=== PATIENT | male | born 1970 | race Caucasian/White ===

== ENCOUNTER 2016-05-13 20:14 | Inpatient (IN) | payer MEDICARE, OTHER ==
[2016-05-13] VITALS (13 sets, daily range): BP systolic 110–209; BP diastolic 69–114; PULSE 57–86; RESP 16–20; O2SAT 98–100
[~2016-05-13 20:14] MED LIST: ALPR2TAB3 PO; BACL20TA PO; CIPR500T4 PO; GABA800T PO; IBUP800T23 PO; MELA5TAB13 PO; METH1TAB2 PO; MORP100T40 PO; MORP60TA20; PERC10TA27 PO; POTA1TAB4; [UNRECOGNIZED DRUG - CODE] IR
[2016-05-13] MEDS ORDERED: ETOMIDATE 40 MG/20 ML VIAL ONE (20:20)
[2016-05-13] MEDS ORDERED: PROPOFOL 1000 MG/100 ML INJ 100 ML ONE (20:20)
[2016-05-13] MEDS ORDERED: SUCCINYLCHOLINE CHLORIDE 200 MG/10 ML VIAL ONE (20:21)
[2016-05-13] MEDS ORDERED: SODIUM CHLOR 0.9% 1000 ML INJ 1,000 ML IV ONE ×4 (20:38→23:30)
[2016-05-13 21:00] LABS: AUTOMATED NEUTROPHIL # 6.9 TH/MM3 (1.8-7.7); BASOPHIL # 0.1 TH/MM3 (0-0.2); EOSINOPHIL # 0.6 TH/MM3 (0-0.4); EOSINOPHIL % 4.5 % (0.0-4.0); HEMATOCRIT 50.8 % (39.0-51.0); HEMO FLAGS DIFF FINAL; LYMPH % 37.3 % (9.0-44.0); LYMPHOCYTE # 5.1 TH/MM3 (1.0-4.8); MEAN CELL VOLUME 84.7 FL (80.0-100.0); MEAN CORPUSCULAR HEMOGLOBIN 28.4 PG (27.0-34.0); MEAN CORPUSCULAR HGB CONC 33.6 % (32.0-36.0); MONO % 7.2 % (0.0-8.0); PLATELET COUNT 294 TH/MM3 (150-450); RED CELL DISTRIBUTION WIDTH 14.5 % (11.6-17.2); WHITE BLOOD COUNT 13.7 TH/MM3 (4.0-11.0)
[2016-05-13] MEDS ORDERED: ETOMIDATE 20 MG/10 ML VIAL IVP ONE (21:00)
[2016-05-13] MEDS ORDERED: PROPOFOL 1000 MG/100 ML INJ 100 ML IV SCH (21:00)
[2016-05-13] MEDS ORDERED: SUCCINYLCHOLINE CHLORIDE 200 MG/10 ML VIAL IVP ONE (21:00)
--- NOTE | 2016-05-13 21:01 | PD ---
Data Data Last Documented VS Vital Signs Date Time Temp Pulse Resp B/P Pulse Ox O2 Delivery O2 Flow Rate FiO2 05/13/16 20:35 86 16 209/114 98 Orders Propofol 1000 Mg/100 Ml Inj (Diprivan 10 (05/13/16 20:20) Etomidate Inj (Amidate Inj) (05/13/16 20:20) Succinylcholine Inj (Quelicin Inj) (05/13/16 20:21) Electrocardiogram (05/13/16 20:38) Complete Blood Count With Diff (05/13/16 20:38) Comprehensive Metabolic Panel (05/13/16 20:38) Prothrombin Time / Inr (Pt) (05/13/16 20:38) Act Partial Throm Time (Ptt) (05/13/16 20:38) Lactic Acid Sepsis Protocol (05/13/16 20:38) Magnesium (Mg) (05/13/16 20:38) Phosphorus (Po4) (05/13/16 20:38) Ckmb (Isoenzyme) Profile (05/13/16 20:38) Troponin I (05/13/16 20:38) Urinalysis - C+S If Indicated (05/13/16 20:38) Blood Culture (05/13/16 20:38) Chest, Single Ap (05/13/16 20:38) Arterial Blood Gas (Abg) (05/13/16 20:38) Ecg Monitoring (05/13/16 20:38) Iv Access Insert/Monitor (05/13/16 20:38) Oximetry (05/13/16 20:38) Oxygen Administration (05/13/16 20:38) Ct Brain W/O Iv Contrast(Rout) (05/13/16 20:38) Sodium Chlor 0.9% 1000 Ml Inj (Ns 1000 M (05/13/16 20:38) Alcohol (Ethanol) (05/13/16 20:38) Ammonia (05/13/16 20:38) Drug Screen, Random Urine (05/13/16 20:38) Etomidate Inj (Amidate Inj) (05/13/16 21:00) Succinylcholine Inj (Quelicin Inj) (05/13/16 21:00) Propofol 1000 Mg/100 Ml Inj (Diprivan 10 (05/13/16 21:00) ^ Infusion (05/13/16 20:48) RASS (05/13/16 20:48) Neurological Rass Scale JOSI.Q2H (05/13/16 20:48) Restraints Non-Violent ONCE (05/13/16 20:50) Insert Ng Tube (05/13/16 20:50) MDM Medical Record Reviewed: Yes Supervised Visit with [place]: No Narrative Course I was asked by Dr. Waite to assist with intubation. Procedures Procedure Narrative After the risks and benefits were discussed the following procedure was performed: INTUBATION: The patient was put in optimal position for the procedure. Rapid sequence intubation was initiated by me using 30 milligrams of etomidate IV and 100 milligrams of succinylcholine IV. The patient was intubated with a 7-5 cuffed endotracheal tube. Tube placement was confirmed by visualization of the tube and balloon passing through the cords, capnometry and subsequent chest x-ray. Breath sounds were equal and well aerated bilaterally postintubation. No breath sounds over stomach. Patient tolerated procedure well. Kemal Ortega MD May 13, 2016 21:01
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
[2016-05-13 21:15] LABS: APTT (PATIENT) 31.1 SEC (24.3-30.1); PROTHROMBIN TIME - PATIENT 11.2 SEC (9.8-11.6)
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
[2016-05-13 21:23] LABS: AST (GOT) 18 U/L (15-37); BLOOD UREA NITROGEN 4 MG/DL (7-18); CHLORIDE 103 MEQ/L (98-107); GLOMERULAR FILTRATION RATE 120 ML/MIN (>89); MAGNESIUM 2.3 MG/DL (1.5-2.5); TOTAL BILIRUBIN ADULT 0.4 MG/DL (0.2-1.0)
[2016-05-13 21:24] LABS: ALKALINE PHOSPHATASE 134 U/L (45-117); ALT (GPT) 17 U/L (12-78); ANION GAP 10 MEQ/L (5-15); BICARBONATE 27.2 MEQ/L (21.0-32.0); SODIUM (NA) 140 MEQ/L (136-145)
[2016-05-13 21:29] LABS: CREATINE KINASE 70 U/L (39-308); POTASSIUM 3.7 MEQ/L (3.5-5.1)
[2016-05-13] MEDS ORDERED: VANCOMYCIN INJ 1,000 MG in SODIUM CHLOR 0.9% 250 ML INJ 250 ML IV STA (21:36)
[2016-05-13] MEDS ORDERED: CEFEPIME INJ 2,000 MG in SODIUM CHLORIDE 0.9% INJ 100 ML IV STA (21:36)
[2016-05-13 22:07] LABS: BLOOD GAS BASE EXCESS 1.8 mmol/L (-2-2); BLOOD GAS CARBOXYHEMOGLOBIN 9.2 % (0-4); BLOOD GAS HCO3 28 mmol/L (22-26); BLOOD GAS O2 HGB SATURATION 88 % (90-100); BLOOD GAS OXYGEN CONTENT 21.1 Vol % (12.0-20.0); BLOOD GAS PCO2 60 mmHg (38-42); BLOOD GAS PO2 169 mmHG (61-120); BLOOD GAS TOTAL HGB 16.9 G/DL (12.0-16.0); TEMP CORR TO 98.6
[2016-05-13 22:08] LABS: DRAW SITE LT RADIAL; FIO2 100 %; OXYGEN DEVICE AC 16/500/PEEP5; STAT YES; ULNAR PULSE Y
[2016-05-13 22:29] LABS: BACTERIA, URINE FEW /hpf; BLOOD, URINE MOD (NEG); COMMENT (UR) CATH-CULTURE IND; CULTURE IF INDICATED CATH CULTURE IND; GLUCOSE,URINE NEG (NEG); HYALINE CAST, URINE 6 /lpf (RARE); KETONE, URINE NEG (NEG); MUCUS URINE FEW /lpf (OCC); NITRITE,URINE NEG (NEG); SQUAMOUS EPITHELIAL CELL URINE <1 /hpf (0-5); URINE COLOR YELLOW (YELLW/STRAW)
[2016-05-13] MEDS ORDERED: IOHEXOL 350 MG/ML 10 ML VIAL (for RAD DIAG) IV ONE (22:30)
--- NOTE | 2016-05-13 22:37 | RADRPT ---
EXAM DATE/TIME: 05/13/2016 22:25 [facility] COMPARISON: CT BRAIN W/O CONTRAST, March 15, 2013, 21:10. INDICATIONS : Altered mental status. Confusion. RADIATION DOSE: 41.08 CTDIvol (mGy) MEDICAL HISTORY : Seizures. SURGICAL HISTORY : None. ENCOUNTER: Initial ACUITY: 1 day PAIN SCALE: 3/10 LOCATION: cranial TECHNIQUE: Multiple contiguous axial images were obtained of the head. Using automated exposure control and adj ustment of the mA and/or kV according to patient size, radiation dose was kept as low as reasonably a chievable to obtain optimal diagnostic quality images. FINDINGS: Prominent dural calcifications along the falx are again seen. No hemorrhage, infarct, or mass. Mastoi d air cells are well aerated. Fluid is seen in right maxillary sinus. No fractures. CONCLUSION: Right maxillary sinus fluid. Stable appearance of the brain. Felice Cho MD on May 13, 2016 at 22:35 Board Certified Radiologist. This report was verified electronically.
[2016-05-13 22:51] LABS: LACTIC ACID GHOST NOT REPORTABLE
--- NOTE | 2016-05-13 22:51 | RADRPT ---
EXAM DATE/TIME: 05/13/2016 22:30 [facility] COMPARISON: CT ABDOMEN & PELVIS W CONTRAST, October 15, 2013, 20:09. INDICATIONS : Fever. Found unresponsive. IV CONTRAST: 96 cc Omnipaque 350 (iohexol) IV ORAL CONTRAST: No oral contrast ingested. RADIATION DOSE: 23.08 CTDIvol (mGy) MEDICAL HISTORY : Seizures. SURGICAL HISTORY : None. ENCOUNTER: Initial ACUITY: 1 day PAIN SCALE: 3/10 LOCATION: Abdomen TECHNIQUE: Volumetric scanning of the abdomen and pelvis was performed. Using automated exposure control and ad justment of the mA and/or kV according to patient size, radiation dose was kept as low as reasonably achievable to obtain optimal diagnostic quality images. FINDINGS: There is dense consolidation within the lower lobes. No pleural or pericardial effusions. Liver, gall bladder, spleen, pancreas, bilateral adrenal glands, right kidney unremarkable. There are staghorn ca lculi seen within the left kidney including a left renal pelvis calculus measuring 1.9 cm. There is d ilatation of the left upper pole collecting system, cystic in appearance secondary to a left upper po le calculus. This calculus measures 1.9 cm.A suprapubic catheter is noted within the urinary bladder. There is no evidence of bowel obstruction. NG tube terminates in the stomach. Atherosclerotic calcif ications of the aorta and iliac vessels are seen. IVC filter is noted. There are degenerative changes of the lumbar spine identified. CONCLUSION: 1. Bilateral lower lobe consolidation. 2. Atherosclerosis. 3. Left renal calculi are noted. Felice Cho MD on May 13, 2016 at 22:47 Board Certified Radiologist. This report was verified electronically.
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
[2016-05-13] MEDS ORDERED: SODIUM CHLORIDE 0.9% FLUSH 5 ML FLUSH IV FLUSH PRN (23:30)
[2016-05-13] MEDS ORDERED: MISCELLANEOUS NURSING INFORMATION XX SCH (23:30)
[2016-05-13] MEDS ORDERED: CHLORHEXIDINE GLUCONATE 2 % 1 PACK (2 CLOTHS) TOP PRN (23:30)
[2016-05-13] MEDS ORDERED: Vancomycin Consult Pharmacy 1 EA OTHER SCH (23:30)
[2016-05-13 23:31] LABS: BLOOD GAS CARBOXYHEMOGLOBIN 6.1 % (0-4); BLOOD GAS HCO3 22 mmol/L (22-26); BLOOD GAS METHEMOGLOBIN 1.9 % (0-2); BLOOD GAS O2 HGB SATURATION 91 % (90-100); BLOOD GAS OXYGEN CONTENT 18.9 Vol % (12.0-20.0); BLOOD GAS PCO2 42 mmHg (38-42); BLOOD GAS PO2 110 mmHG (61-120); BLOOD GAS TOTAL HGB 14.7 G/DL (12.0-16.0); TEMP CORR TO 98.6
[2016-05-13 23:31] LABS: AMPHETAMINE, URINE NEG (NEG); BARBITURATES, URINE NEG (NEG); COCAINE, URINE NEG (NEG)
[2016-05-13 23:32] LABS: CRITICAL VALUE YES; DRAW SITE RT RADIAL; FIO2 100 %; NUMBER OF ARTERIAL PUNCTURES 2; STAT NO; ULNAR PULSE Y
[2016-05-13] MEDS ORDERED: RESP: ALBUTEROL 2.5 MG/IPRATROPIUM 0.5 MG NEB (PRN) NEB (23:45)
[2016-05-14] VITALS (22 sets, daily range): BP systolic 132–164; BP diastolic 76–92; PULSE 50–73; RESP 20; O2SAT 93–100
[2016-05-14] MEDS ORDERED: VANCOMYCIN 1,000 MG/NS 250 ML IV ONE ×2 (00:15)
--- NOTE | 2016-05-14 01:54 | RADRPT ---
EXAM DATE/TIME: 05/14/2016 01:34 [facility] COMPARISON: CHEST SINGLE AP, February 20, 2015, 21:01. CHEST SINGLE AP, May 13, 2016, 20:52. INDICATIONS : Shortness of breath, possible pulmonary disease. MEDICAL HISTORY : Seizures SURGICAL HISTORY : Fusion, cervical. ENCOUNTER: Subsequent ACUITY: 1 day PAIN SCORE: Non-responsive. LOCATION: Bilateral chest FINDINGS: A single AP semierect view of the chest was obtained and demonstrate hazy opacity of the lung bases r ight greater than left with mild blunting of costophrenic angles. The endotracheal tube remains in pl juan with the tip approximately 3 cm above the juan. A nasogastric tube is seen coursing through the esophagus into the stomach. The patient is mildly rotated. The heart size appears mildly prominent. The bony thorax is intact with overlying electrocardiogram leads. CONCLUSION: 1. Rotated study demonstrating hazy opacity at both lung bases with mild blunting of the costophrenic angles most consistent with small effusions. Alex Flecther MD on May 14, 2016 at 1:51 Board Certified Radiologist. This report was verified electronically.
[2016-05-14] MEDS: SODIUM CHLOR 0.9% 1000 ML INJ 1,000 ML IV SCH ×2 (02:42→12:09)
[2016-05-14 04:29] LABS: BASOPHIL # 0.1 TH/MM3 (0-0.2); BASOPHIL % 0.7 % (0.0-2.0); EOSINOPHIL # 0.3 TH/MM3 (0-0.4); EOSINOPHIL % 3.2 % (0.0-4.0); HEMATOCRIT 48.4 % (39.0-51.0); HEMO FLAGS DIFF FINAL; LYMPH % 21.7 % (9.0-44.0); LYMPHOCYTE # 1.9 TH/MM3 (1.0-4.8); MEAN CELL VOLUME 84.7 FL (80.0-100.0); MEAN CORPUSCULAR HEMOGLOBIN 27.9 PG (27.0-34.0); MEAN CORPUSCULAR HGB CONC 32.9 % (32.0-36.0); MONO % 6.5 % (0.0-8.0); NEUT % 67.9 % (16.0-70.0); PLATELET COUNT 186 TH/MM3 (150-450); RED BLOOD COUNT 5.72 MIL/MM3 (4.50-5.90); RED CELL DISTRIBUTION WIDTH 14.2 % (11.6-17.2); WHITE BLOOD COUNT 8.9 TH/MM3 (4.0-11.0)
[2016-05-14 05:02] LABS: ALKALINE PHOSPHATASE 120 U/L (45-117); ALT (GPT) 18 U/L (12-78); ANION GAP 8 MEQ/L (5-15); AST (GOT) 27 U/L (15-37); BICARBONATE 25.7 MEQ/L (21.0-32.0); BLOOD UREA NITROGEN 4 MG/DL (7-18); CHLORIDE 110 MEQ/L (98-107); GLOMERULAR FILTRATION RATE 153 ML/MIN (>89); SODIUM (NA) 144 MEQ/L (136-145); TOTAL BILIRUBIN ADULT 0.7 MG/DL (0.2-1.0)
[2016-05-14] MEDS: CHLORHEXIDINE GLUCONATE 2 % 1 PACK (2 CLOTHS) TOP SCH (05:12)
[2016-05-14] MEDS: CEFEPIME INJ 2,000 MG in SODIUM CHLORIDE 0.9% INJ 100 ML IV SCH ×3 (06:27→21:25)
[2016-05-14] MEDS: PROPOFOL 1000 MG/100 ML INJ 100 ML IV SCH ×5 (06:28→21:34)
[2016-05-14] MEDS: fentaNYL DRIP 250 ML IV SCH ×2 (06:51→09:29)
[2016-05-14] MEDS ORDERED: SENNOSIDES SYRUP 8.8 MG/5 ML CUP G-TUBE PRN (07:00)
[2016-05-14] MEDS ORDERED: DEXTROSE 50% IN WATER 50 ML VIAL(D50) IV PUSH PRN (07:00)
[2016-05-14] MEDS ORDERED: ACETAMINOPHEN 325 MG TAB PO PRN (07:00)
[2016-05-14] MEDS ORDERED: MISCELLANEOUS NURSING INFORMATION XX SCH (07:00)
[2016-05-14] MEDS ORDERED: ONDANSETRON HCL 4 MG/2 ML VIAL IV PRN (07:00)
[2016-05-14] MEDS ORDERED: SODIUM CHLORIDE 0.9% FLUSH 5 ML FLUSH IV FLUSH PRN (07:00)
[2016-05-14] MEDS ORDERED: GLUCAGON 1 MG/ML VIAL OTHER PRN (07:00)
[2016-05-14] MEDS ORDERED: CHLORHEXIDINE GLUCONATE 2 % 1 PACK (2 CLOTHS) TOP PRN (07:00)
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
[2016-05-14] MEDS ORDERED: Vancomycin Consult Pharmacy 1 EA OTHER SCH (07:30)
[2016-05-14] MEDS ORDERED: ACETIC ACID 0.25% SOLN 1000 ML IRR BTL IRRIGATION SCH (09:00)
[2016-05-14] MEDS ORDERED: BENEPROTEIN POWDER 1 PACK G-TUBE SCH (09:00)
[2016-05-14] MEDS ORDERED: SODIUM CHLORIDE 0.9% FLUSH 5 ML FLUSH IV FLUSH SCH (09:00)
[2016-05-14] MEDS: BENEPROTEIN POWDER 1 PACK G-TUBE SCH ×3 (09:00→17:02)
[2016-05-14] MEDS: LACTULOSE SYRUP 20 GM/30 ML CUP PO SCH (09:25)
[2016-05-14] MEDS: MORPHINE SULFATE ORAL SOLN 10 MG/0.5 ML SYRINGE PO SCH ×3 (09:25→17:03)
[2016-05-14] MEDS: DOCUSATE SODIUM 100 MG/10 ML UDC G-TUBE SCH ×2 (09:25→20:06)
[2016-05-14] MEDS: CHLORHEXIDINE 0.12% (ORAL KIT) 15 ML CUP MT SCH ×2 (09:26→20:06)
[2016-05-14] MEDS: GABAPENTIN 400 MG CAP PO SCH ×3 (09:26→17:02)
[2016-05-14] MEDS: ARTIFICIAL TEARS OPTH SOLN 15 ML BTL EACH EYE SCH ×3 (09:26→17:02)
[2016-05-14] MEDS: PANTOPRAZOLE SODIUM 40 MG VIAL IV SCH (09:26)
[2016-05-14] MEDS: SODIUM CHLORIDE 0.9% FLUSH 5 ML FLUSH IV FLUSH SCH ×2 (09:26→20:06)
[2016-05-14] MEDS: ENOXAPARIN SODIUM 40 MG/0.4 ML SYRINGE SQ SCH (09:27)
[2016-05-14] MEDS ORDERED: METHENAMINE MANDELATE 500 MG TAB PO SCH (09:30)
[2016-05-14] MEDS: METOCLOPRAMIDE HCL 10 MG/2 ML VIAL IV PUSH SCH ×3 (09:32→21:25)
[2016-05-14] MEDS: RESP: ALBUTEROL 2.5 MG/IPRATROPIUM 0.5 MG NEB (SCH) INH ×3 (10:00→20:07)
[2016-05-14] MEDS: INSULIN NovoLIN REGULAR SUPPLEMENTAL SCALE SQ SCH ×2 (11:47→17:03)
--- NOTE | 2016-05-14 11:54 | EKG ---
Date Performed: 05/13/2016 Time Performed: 23:45:56 PTAGE: 46 years EKG: SINUS BRADYCARDIA LOW QRS VOLTAGE IN EXTREMITY LEADS ST DEVIATION AND MODERATE T-WAVE ABNOR MALITY, CONSIDER ANTERIOR ISCHEMIA ABNORMAL ECG Since PREVIOUS TRACING , no significant change noted PREVIOUS TRACIN02/20/2015 21.32 DOCTOR: Fausto Francois Interpretating Date/Time 05/14/2016 11:52:50
[2016-05-14] MEDS: VANCOMYCIN INJ 1,500 MG in SODIUM CHLORID 0.9% 500 ML INJ 500 ML IV SCH (12:07)
[2016-05-14] MEDS: [UNRECOGNIZED DRUG - REMARK] PO SCH ×2 (12:07→20:06)
[2016-05-14] MEDS: ALPRAZolam 1 MG TAB PO SCH ×2 (13:38→21:25)
[2016-05-14] MEDS: BACLOFEN 20 MG TAB PO SCH ×2 (13:38→21:25)
--- NOTE | 2016-05-14 14:50 | OTSOAPIP ---
TIME SESSION COMPLETED: 1400 TREATMENT TIME: 0 MINS. CHART REVIEWED. ATTEMPTED TO SEE FOR OT EVALUATION, HOWEVER NURSING ASKED TO HOLD PATIENT AT THIS TIME AND SEE NEXT DAY. WILL FOLLOW. Therapist: ALEXANDRA WYNNE OT/Saud Signature on file
[2016-05-14] MEDS ORDERED: SODIUM CHLOR 0.9% 1000 ML INJ 1,000 ML IV ONE (15:00)
--- NOTE | 2016-05-14 15:03 | PD.CONS ---
[facility] Service Urology Consult Requested By Reason for Consult Left Renal Calculi Primary Care Physician Cy Avila MD Diagnosis: History of Present Illness 46 yo quadriplegic male with neurogenic bladder managed by SP tube came to the ER with altered mental status. He subsequently was intubated to protect his airway after becoming minimally responsive. CT of his Head/Abdomen/Pelvis was performed which showed multiple stones in his left kidney, largest being 1.9 cm. He was admitted, started on antibiotics, and Urology consulted. He responds to some questions. He denies pain on his left side. He denies prior h/o kidney stones. Denies family h/o stones. Denies fevers, chills, nausea. Per his nurse, his SP tube has not been changed since arriving to ER. Review of Systems ROS Limitations: Clinical Condition, Intoxication, Intubated Past Family Social History Past Medical History Neurogenic Bladder, UTI, Seizures, Paraplegia Past Surgical History SP tube insertion, Right AKA, C5-7 fusion Reported Medications Morphine, Percocet, Baclofen Allergies: Coded Allergies: *MDRO Multi-Drug Resistant Organism (Verified Adverse Reaction, Unknown, 05/13/16) MRSA VRE MDR Acinetobacter baumannii Active Ordered Medications Vancomycin, Reglan, Protonix, Insulin, Azithromycin Family History No record of urolithiasis or family h/o prostate cancer Social History 1/2 ppd, drinks caffeine, denies illicit drugs or alcohol use Physical Exam Vital Signs Vital Signs Date Time Temp Pulse Resp B/P Pulse Ox O2 Delivery O2 Flow Rate FiO2 05/14/16 14:00 63 05/14/16 12:00 56 05/14/16 11:22 94 50 05/14/16 10:00 62 05/14/16 09:34 100 60 05/14/16 08:00 57 05/14/16 07:00 98 Mechanical Ventilator 80 05/14/16 06:00 52 05/14/16 04:00 73 05/14/16 04:00 100 Mechanical Ventilator 100 05/14/16 03:54 93 100 05/14/16 03:45 99 100 05/14/16 02:45 100 05/14/16 02:30 69 20 132/76 98 Ventilator 100 05/14/16 00:47 100 100 05/14/16 00:45 50 20 152/92 100 Ventilator 100 05/14/16 00:30 60 20 153/85 98 Ventilator 05/14/16 00:15 54 20 160/90 98 Ventilator 100 05/14/16 00:00 52 20 164/83 100 Ventilator 100 05/13/16 23:30 58 20 164/83 99 05/13/16 23:15 58 20 165/94 99 05/13/16 22:45 57 20 157/88 99 05/13/16 22:30 58 20 138/84 100 05/13/16 22:20 100 100 05/13/16 22:15 58 20 148/84 100 05/13/16 22:00 62 20 143/90 100 05/13/16 21:45 62 20 125/80 99 05/13/16 21:30 72 20 110/69 99 05/13/16 21:27 100 05/13/16 21:15 72 16 126/79 98 05/13/16 21:00 99 100 05/13/16 20:53 100 05/13/16 20:53 98 Ventilator 100 05/13/16 20:53 80 16 100 Ventilator 100 05/13/16 20:45 100 100 05/13/16 20:35 86 16 209/114 98 Physical Exam GENERAL: intubated, sedated. Answers some questions. SKIN: No rashes, ecchymoses or lesions. Cool and dry. HEAD: Atraumatic. Normocephalic. No temporal or scalp tenderness. EYES: Pupils equal round and reactive. Extraocular motions intact. No scleral icterus. No injection or drainage. ENT: Nose without bleeding, purulent drainage or septal hematoma. Throat without erythema, tonsillar hypertrophy or exudate. Uvula midline. Airway patent. NECK: Trachea midline. No JVD or lymphadenopathy. Supple, nontender, no meningeal signs. CARDIOVASCULAR: Regular rate and rhythm without murmurs, gallops, or rubs. RESPIRATORY: Clear to auscultation. Breath sounds equal bilaterally. No wheezes , rales, or rhonchi. GASTROINTESTINAL: Abdomen soft, non-tender, nondistended. No hepato-splenomegaly , or palpable masses. No guarding. MUSCULOSKELETAL: Extremities without clubbing, cyanosis, or edema. No joint tenderness, effusion, or edema noted. No calf tenderness. Negative Homans sign bilaterally. NEUROLOGICAL: sedated, opens eyes minimally : phallus circumcised, scrotum edematous but soft SP tube draining concentrated yellow urine. Laboratory Laboratory Tests Test 05/13/16 05/13/16 05/13/16 05/13/16 20:27 21:16 21:30 23:27 Prothrombin Time 11.2 Prothromb Time International 1.0 Ratio Activated Partial 31.1 Thromboplast Time Sodium Level 140 Potassium Level 3.7 Chloride Level 103 Carbon Dioxide Level 27.2 Anion Gap 10 Blood Urea Nitrogen 4 Creatinine 0.70 Estimat Glomerular Filtration 120 Rate Random Glucose 93 Lactic Acid Level 5.5 Calcium Level 8.5 Phosphorus Level 4.2 Magnesium Level 2.3 Total Bilirubin 0.4 Aspartate Amino Transf 18 (AST/SGOT) Alanine Aminotransferase 17 (ALT/SGPT) Alkaline Phosphatase 134 Ammonia 52 Total Creatine Kinase 70 Troponin I LESS THAN 0.02 Total Protein 7.9 Albumin 3.1 Ethyl Alcohol Level LESS THAN 3 White Blood Count 13.7 Red Blood Count 6.00 Hemoglobin 17.1 Hematocrit 50.8 Mean Corpuscular Volume 84.7 Mean Corpuscular Hemoglobin 28.4 Mean Corpuscular Hemoglobin 33.6 Concent Red Cell Distribution Width 14.5 Platelet Count 294 Mean Platelet Volume 8.6 Neutrophils (%) (Auto) 50.0 Lymphocytes (%) (Auto) 37.3 Monocytes (%) (Auto) 7.2 Eosinophils (%) (Auto) 4.5 Basophils (%) (Auto) 1.0 Neutrophils # (Auto) 6.9 Lymphocytes # (Auto) 5.1 Monocytes # (Auto) 1.0 Eosinophils # (Auto) 0.6 Basophils # (Auto) 0.1 CBC Comment DIFF FINAL Differential Comment Blood Gas Puncture Site LT RADIAL RT RADIAL Blood Gas Patient Temperature 98.6 98.6 Blood Gas HCO3 28 22 Blood Gas Base Excess 1.8 -3.0 Blood Gas Oxygen Saturation 88 91 Arterial Blood pH 7.29 7.34 Arterial Blood Partial 60 42 Pressure CO2 Arterial Blood Partial 169 110 Pressure O2 Arterial Blood Oxygen Content 21.1 18.9 Arterial Blood 9.2 6.1 Carboxyhemoglobin Arterial Blood Methemoglobin 2.0 1.9 Blood Gas Hemoglobin 16.9 14.7 Oxygen Delivery Device AC 16/500/PEEP5 Blood Gas Inspired Oxygen 100 100 Urine Opiates Screen POS Urine Barbiturates Screen NEG Urine Amphetamines Screen NEG Urine Benzodiazepines Screen POS Urine Cocaine Screen NEG Urine Cannabinoids Screen NEG Urine Color YELLOW Urine Turbidity HAZY Urine pH 6.0 Urine Specific [place] 1.007 Urine Protein 30 Urine Glucose (UA) NEG Urine Ketones NEG Urine Occult Blood MOD Urine Nitrite NEG Urine Bilirubin NEG Urine Urobilinogen LESS THAN 2.0 Urine Leukocyte Esterase LARGE Urine RBC 12 Urine WBC 88 Urine WBC Clumps FEW Urine Squamous Epithelial <1 Cells Urine Bacteria FEW Urine Hyaline Casts 6 Urine Mucus FEW Urine Yeast (Budding) MOD Microscopic Urinalysis Comment CATH-CULTURE IND Blood Gas Ventilator Setting Test 05/14/16 05/14/16 05/14/16 05/14/16 00:00 04:00 04:12 10:55 Lactic Acid Level 2.0 Nasal Screen MRSA (PCR) NEGATIVE White Blood Count 8.9 Red Blood Count 5.72 Hemoglobin 15.9 Hematocrit 48.4 Mean Corpuscular Volume 84.7 Mean Corpuscular Hemoglobin 27.9 Mean Corpuscular Hemoglobin 32.9 Concent Red Cell Distribution Width 14.2 Platelet Count 186 Mean Platelet Volume 8.0 Neutrophils (%) (Auto) 67.9 Lymphocytes (%) (Auto) 21.7 Monocytes (%) (Auto) 6.5 Eosinophils (%) (Auto) 3.2 Basophils (%) (Auto) 0.7 Neutrophils # (Auto) 6.0 Lymphocytes # (Auto) 1.9 Monocytes # (Auto) 0.6 Eosinophils # (Auto) 0.3 Basophils # (Auto) 0.1 CBC Comment DIFF FINAL Differential Comment Sodium Level 144 Potassium Level 4.0 Chloride Level 110 Carbon Dioxide Level 25.7 Anion Gap 8 Blood Urea Nitrogen 4 Creatinine 0.57 Estimat Glomerular Filtration 153 Rate Random Glucose 95 Calcium Level 7.7 Total Bilirubin 0.7 Aspartate Amino Transf 27 (AST/SGOT) Alanine Aminotransferase 18 (ALT/SGPT) Alkaline Phosphatase 120 Total Protein 6.6 Albumin 2.7 Troponin I LESS THAN 0.02 Date/Time Procedure Status Source Growth 05/14/16 00:40 Influenza Types A,B Antigen (JESSICA) - Final Complete Nasal Washing NEGATIVE FOR FLU A AND B ANTIGEN.... 05/13/16 21:30 Urine Culture - Preliminary Resulted Urine Catheterized Urine Gram Negative Kvng 05/13/16 20:35 Aerobic Blood Culture - Preliminary Resulted Blood Peripheral NO GROWTH IN 1 DAY 05/13/16 20:35 Anaerobic Blood Culture - Preliminary Resulted Blood Peripheral NO GROWTH IN 1 DAY Result Diagram: 05/14/1641105/14/16411 Imaging Last 48 hours Impressions Chest X-Ray 05/14/16 0600 Signed Impressions: Service Date/Time: April 01:34 - CONCLUSION: 1. Rotated study demonstrating hazy opacity at both lung bases with mild blunting of the costophrenic angles most consistent with small effusions. Alex Fletcher MD Abdomen/Pelvis CT 05/13/166 Signed Impressions: Service Date/Time: Friday, May 13, 2016 22:30 - CONCLUSION: 1. Bilateral lower lobe consolidation. 2. Atherosclerosis. 3. Left renal calculi are noted. Felice Cho MD Head CT 05/13/162037 Signed Impressions: Service Date/Time: Friday, May 13, 2016 22:25 - CONCLUSION: Right maxillary sinus fluid. Stable appearance of the brain. Felice Cho MD Chest X-Ray 05/13/162037 Signed Impressions: Service Date/Time: Friday, May 13, 2016 20:52 - CONCLUSION: Left basilar atelectasis and airspace disease suspected. Felice Cho MD CT A/P without contrast images reviewed. Agree with radiologist report. Multiple left renal calculi noted, largest 1.9 cm in left renal pelvis Assessment and Plan Problem List: (1) Nephrolithiasis ICD Code: N20.0 Status: Acute (2) Neurogenic bladder ICD Code: N31.9 Status: Chronic Assessment and Plan -Continue IV antibiotics -Continue SP tube. -Obtain KUB. -He will need eventual treatment of his left sided kidney stones, whether it is by multiple lithotripsies versus Percutaneous Nephrolithotomy, which would probably be the best treatment modality. However, I do not think this needs to be done on an emergent basis at this time. -If his condition does not improve or he begins to decline, I would recommend having a left nephrostomy tube placed by Invasive Radiology. Discussed Condition With Adrian Pierre MD May 14, 2016 15:03
--- NOTE | 2016-05-14 16:02 | RADRPT ---
EXAM DATE/TIME: 05/14/2016 15:37 [facility] COMPARISON: CT ABDOMEN & PELVIS W CONTRAST, May 13, 2016, 22:30. INDICATIONS : Calculi MEDICAL HISTORY : seizures SURGICAL HISTORY : None. ENCOUNTER: Initial ACUITY: 1 day PAIN SCORE: Non-responsive. LOCATION: Bilateral abdomen FINDINGS: 2 rotated supine frontal views of the abdomen and demonstrate abnormal densities overlying the left r enal shadow. These renal stones are very difficult to visualize due to body habitus and patient posit ion. There is a density overlying the left upper pole measuring approximately 11 mm in 2 densities ov erlying the left lower pole measuring 7 mm and 11 mm. No densities are seen over the right kidney. Th ere is a nonobstructive bowel gas pattern. Nasogastric tube tip is in the stomach. There is a stable appearance of the right hip joint with severe joint space narrowing. CONCLUSION: The left renal stones are poorly visualized due to body habitus and patient positioning. However, the stones previously documented at the left upper and lower pole are visualized with the largest measur ing 11 mm. Malcolm Nelson MD on May 14, 2016 at 15:54 Board Certified Radiologist. This report was verified electronically.
[2016-05-14] MEDS: AZITHROMYCIN INJ 500 MG in SODIUM CHLOR 0.9% 250 ML INJ 250 ML IV SCH (22:02)
[2016-05-15] VITALS (20 sets, daily range): BP systolic 113–158; BP diastolic 66–95; PULSE 58–97; RESP 11–18; TEMP 99.2–99.8; O2SAT 90–99
[2016-05-15] MEDS: MORPHINE SULFATE ORAL SOLN 10 MG/0.5 ML SYRINGE PO SCH ×5 (00:53→23:11)
[2016-05-15] MEDS: VANCOMYCIN INJ 1,500 MG in SODIUM CHLORID 0.9% 500 ML INJ 500 ML IV SCH (00:53)
[2016-05-15] MEDS: PROPOFOL 1000 MG/100 ML INJ 100 ML IV SCH ×2 (00:54→05:57)
[2016-05-15] MEDS: SODIUM CHLOR 0.9% 1000 ML INJ 1,000 ML IV SCH ×2 (02:38→13:08)
[2016-05-15] MEDS: RESP: ALBUTEROL 2.5 MG/IPRATROPIUM 0.5 MG NEB (SCH) INH ×4 (03:29→20:15)
[2016-05-15 03:51] LABS: AUTOMATED NEUTROPHIL # 3.4 TH/MM3 (1.8-7.7); BASOPHIL % 0.8 % (0.0-2.0); EOSINOPHIL # 0.3 TH/MM3 (0-0.4); EOSINOPHIL % 5.1 % (0.0-4.0); HEMATOCRIT 43.6 % (39.0-51.0); HEMO FLAGS DIFF FINAL; LYMPH % 20.3 % (9.0-44.0); MEAN CORPUSCULAR HEMOGLOBIN 27.4 PG (27.0-34.0); MEAN CORPUSCULAR HGB CONC 32.6 % (32.0-36.0); MONO % 7.7 % (0.0-8.0); NEUT % 66.1 % (16.0-70.0); PLATELET COUNT 160 TH/MM3 (150-450); RED BLOOD COUNT 5.19 MIL/MM3 (4.50-5.90); RED CELL DISTRIBUTION WIDTH 14.5 % (11.6-17.2); WHITE BLOOD COUNT 5.1 TH/MM3 (4.0-11.0)
[2016-05-15] MEDS: CHLORHEXIDINE GLUCONATE 2 % 1 PACK (2 CLOTHS) TOP SCH (03:58)
[2016-05-15] MEDS ORDERED: CHLORHEXIDINE GLUCONATE 2 % 1 PACK (2 CLOTHS) TOP SCH (04:00)
[2016-05-15 04:08] LABS: APTT (PATIENT) 31.9 SEC (24.3-30.1); PROTHROMBIN TIME - PATIENT 11.1 SEC (9.8-11.6)
[2016-05-15 04:12] LABS: ANION GAP 8 MEQ/L (5-15); AST (GOT) 13 U/L (15-37); BICARBONATE 25.9 MEQ/L (21.0-32.0); BLOOD UREA NITROGEN 5 MG/DL (7-18); CHLORIDE 113 MEQ/L (98-107); GLOMERULAR FILTRATION RATE 191 ML/MIN (>89); MAGNESIUM 1.9 MG/DL (1.5-2.5); POTASSIUM 3.3 MEQ/L (3.5-5.1); SODIUM (NA) 147 MEQ/L (136-145)
[2016-05-15 04:14] LABS: ALKALINE PHOSPHATASE 105 U/L (45-117); ALT (GPT) 15 U/L (12-78); TOTAL BILIRUBIN ADULT 0.5 MG/DL (0.2-1.0)
[2016-05-15] MEDS: INSULIN NovoLIN REGULAR SUPPLEMENTAL SCALE SQ SCH ×5 (05:41→23:45)
[2016-05-15] MEDS: ALPRAZolam 1 MG TAB PO SCH ×3 (05:46→21:01)
[2016-05-15] MEDS: BACLOFEN 20 MG TAB PO SCH ×3 (05:46→21:02)
[2016-05-15] MEDS: METOCLOPRAMIDE HCL 10 MG/2 ML VIAL IV PUSH SCH ×3 (05:46→21:01)
[2016-05-15] MEDS: CEFEPIME INJ 2,000 MG in SODIUM CHLORIDE 0.9% INJ 100 ML IV SCH ×3 (05:47→21:20)
--- NOTE | 2016-05-15 06:23 | RADRPT ---
EXAM DATE/TIME: 05/15/2016 04:52 [facility] COMPARISON: CHEST SINGLE AP, May 14, 2016, 1:34. INDICATIONS : Please evaluate for possible pnuemonia. MEDICAL HISTORY : seizures SURGICAL HISTORY : None. ENCOUNTER: Subsequent ACUITY: 1 week PAIN SCORE: Non-responsive. LOCATION: Bilateral chest FINDINGS: A single view of the chest demonstrates increased density at the right lung base. Minimal retrocardia c density again seen. Endotracheal tube and nasogastric tube appear unchanged. The cardiomediastinal contours are unremarkable. Osseous structures are intact. CONCLUSION: Bibasilar densities are again seen and unchanged. Jerrod Tejeda MD on May 15, 2016 at 6:20 Board Certified Radiologist. This report was verified electronically.
[2016-05-15] MEDS: fentaNYL DRIP 250 ML IV SCH (06:48)
[2016-05-15] MEDS: CHLORHEXIDINE 0.12% (ORAL KIT) 15 ML CUP MT SCH ×2 (08:00→20:00)
[2016-05-15] MEDS: ENOXAPARIN SODIUM 40 MG/0.4 ML SYRINGE SQ SCH (08:34)
[2016-05-15] MEDS: PANTOPRAZOLE SODIUM 40 MG VIAL IV SCH (08:34)
[2016-05-15] MEDS: [UNRECOGNIZED DRUG - REMARK] PO SCH ×2 (08:34→21:01)
[2016-05-15] MEDS: LACTULOSE SYRUP 20 GM/30 ML CUP PO SCH ×2 (08:34→21:00)
[2016-05-15] MEDS: DOCUSATE SODIUM 100 MG/10 ML UDC G-TUBE SCH ×2 (08:34→21:00)
[2016-05-15] MEDS: GABAPENTIN 400 MG CAP PO SCH ×3 (08:34→17:57)
[2016-05-15] MEDS: SODIUM CHLORIDE 0.9% FLUSH 5 ML FLUSH IV FLUSH SCH ×2 (08:35→21:00)
[2016-05-15] MEDS: BENEPROTEIN POWDER 1 PACK G-TUBE SCH ×3 (08:35→17:57)
[2016-05-15] MEDS: ARTIFICIAL TEARS OPTH SOLN 15 ML BTL EACH EYE SCH ×3 (08:35→17:58)
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
[2016-05-15] MEDS ORDERED: POTASSIUM CL 40 MEQ/30 ML LIQ UDC PO ONE (11:00)
[2016-05-15] MEDS ORDERED: PHARMACY ORDERED LAB XX ONE (11:45)
[2016-05-15] MEDS: SENNOSIDES SYRUP 8.8 MG/5 ML CUP G-TUBE SCH (17:57)
--- NOTE | 2016-05-15 19:00 | EC ---
Study Study Date:05/15/2016 STUDY CONCLUSIONS SUMMARY - Left ventricle: The cavity size was normal. Wall thickness was normal. Systolic function was normal. The estimated ejection fraction was in the range of 55% to 60%. Wall motion was normal; there were no regional wall motion abnormalities. - Aortic valve: Valve area: 2.14cm^2(VTI). Valve area: 2.28cm^2 (Vmax). Impressions: No evidence of endocarditis. If LV function is below 40, please consider prescribing an ACEI or ARB or document rationale for non-use. PROCEDURE DATA STUDY STATUS: Elective. Procedure: Transthoracic echocardiography. Image quality was fair. Scanning was performed from the parasternal, apical, and subcostal acoustic windows. Study completion: The patient tolerated the procedure well. Transthoracic echocardiography. M-mode, complete 2D, complete spectral Doppler, and color Doppler. Height: Height: 70in. Weight: Weight: 256.5lb. Body mass index: BMI: 36.9kg/m^2. Body surface area: BSA: 2.32m^2. Patient status: Inpatient. CARDIAC ANATOMY LEFT VENTRICLE: The cavity size was normal. Wall thickness was normal. Systolic function was normal. The estimated ejection fraction was in the range of 55% to 60%. Wall motion was normal; there were no regional wall motion abnormalities. AORTIC VALVE: Trileaflet; normal thickness leaflets. Doppler: Transvalvular velocity was within the normal range. There was no stenosis. No regurgitation. Valve area: 2.14cm^2(VTI). Indexed valve area: 0.92cm^2/m^2 (VTI). Valve area: 2.28cm^2 (Vmax). Indexed valve area: 0.98cm^2/m^2 (Vmax). Mean gradient: 6mm Hg (S). Peak gradient: 12mm Hg (S). AORTA: Aortic root: The aortic root was normal in size. MITRAL VALVE: Structurally normal valve. Doppler: Transvalvular velocity was within the normal range. There was no evidence for stenosis. Trace to mild regurgitation. Peak gradient: 4mm Hg (D). LEFT ATRIUM: The atrium was normal in size. RIGHT VENTRICLE: The cavity size was normal. Wall thickness was normal. PULMONIC VALVE: Doppler: Transvalvular velocity was within the normal range. There was no evidence for stenosis. No regurgitation. TRICUSPID VALVE: Structurally normal valve. Doppler: Transvalvular velocity was within the normal range. Trace to mild regurgitation. PULMONARY ARTERY: The main pulmonary artery was normal-sized. Systolic pressure was within the normal range. RIGHT ATRIUM: The atrium was normal in size. PERICARDIUM: There was no pericardial effusion. SYSTEMIC VEINS: Inferior vena cava: The vessel was normal in size. Patient weight: 256.5lb _Ejection fraction:_ 65-75% _Fractional shortening:_ 32% up to 5Kg 5-11.5Kg 11.6-22.9Kg 23-45Kg 45-57Kg Aortic Root 7-13 <17 13-22 17-27 17-27 LA diam 6-13 <23 24-38 33-47 37-40 RVID 10-17 7-15 7-15 7-18 8-17 LVIDd 12-22 <32 24-38 33-47 37-40 LVPW 2-4 3-6 5-7 6-8 7-8 IVS 2-4 3-6 5-7 6-8 7-8 BASIC MEASUREMENTS ADULT NORMAL Left ventricle LV internal dimension, ED, chordal *55.8 mm 43-52 level, PLAX LV internal dimension, ES, chordal *41.2 mm 23-38 level, PLAX Fractional shortening, chordal level, *26 % >29 PLAX LV posterior wall thickness, ED 7.47 mm IVS/LVPW ratio, ED 1 <1.3 Ventricular septum Septal thickness, ED 7.44 mm Aortic valve Leaflet separation 18 mm 15-26 Aorta Root diameter, ED 30 mm Left atrium Anterior-posterior dimension 26 mm Anterior-posterior dimension index 1.12 cm/m^2 <2.2 BASIC MEASUREMENTS ADULT NORMAL Aortic valve Leaflet separation 18 mm 15-26 DOPPLER MEASUREMENTS ADULT NORMAL Aortic valve Peak velocity, S 170 cm/s Mean velocity, S 110 cm/s VTI, S 29.9 cm Mean gradient, S 6 mm Hg Peak gradient, S 12 mm Hg Valve area, VTI 2.14 cm^2 Valve area index, VTI 0.92 cm^2/m^2 Valve area, Vmax 2.28 cm^2 Valve area index, Vmax 0.98 cm^2/m^2 Mitral valve Peak E-wave velocity 96 cm/s Peak A-wave velocity 75.5 cm/s Deceleration time 183 ms 150-230 Peak gradient, D 4 mm Hg Peak E/A ratio 1.3 Pulmonic valve Peak velocity, S 80 cm/s LEGEND: Mean values are shown as u=mean value. Asterisk (*) wilson values outside specified normal range. Prepared and signed by Kathie Godinez [id number]
[2016-05-15] MEDS: RIFAXIMIN 550 MG TAB PO SCH (21:02)
[2016-05-15] MEDS: AZITHROMYCIN INJ 500 MG in SODIUM CHLOR 0.9% 250 ML INJ 250 ML IV SCH (22:22)
[2016-05-15] MEDS: VANCOMYCIN 1,500 MG/NS 500 ML IV SCH ×2 (23:11)
[2016-05-16] VITALS (14 sets, daily range): BP systolic 114–169; BP diastolic 69–84; PULSE 60–93; RESP 9–24; TEMP 97.7–99.4; O2SAT 92–99
[2016-05-16] MEDS: CHLORHEXIDINE GLUCONATE 2 % 1 PACK (2 CLOTHS) TOP SCH (03:34)
[2016-05-16] MEDS: RESP: ALBUTEROL 2.5 MG/IPRATROPIUM 0.5 MG NEB (SCH) INH ×4 (03:50→21:50)
[2016-05-16] MEDS: SODIUM CHLOR 0.9% 1000 ML INJ 1,000 ML IV SCH (03:52)
[2016-05-16 03:54] LABS: AUTOMATED NEUTROPHIL # 4.6 TH/MM3 (1.8-7.7); BASOPHIL % 0.6 % (0.0-2.0); EOSINOPHIL # 0.3 TH/MM3 (0-0.4); EOSINOPHIL % 3.9 % (0.0-4.0); HEMATOCRIT 42.8 % (39.0-51.0); HEMO FLAGS DIFF FINAL; LYMPH % 15.7 % (9.0-44.0); MEAN CELL VOLUME 84.4 FL (80.0-100.0); MEAN CORPUSCULAR HEMOGLOBIN 27.7 PG (27.0-34.0); MEAN CORPUSCULAR HGB CONC 32.8 % (32.0-36.0); MONO % 9.8 % (0.0-8.0); PLATELET COUNT 165 TH/MM3 (150-450); RED BLOOD COUNT 5.07 MIL/MM3 (4.50-5.90); RED CELL DISTRIBUTION WIDTH 14.5 % (11.6-17.2); REVIEW FLAG FINAL; WHITE BLOOD COUNT 6.6 TH/MM3 (4.0-11.0)
[2016-05-16 04:37] LABS: ALKALINE PHOSPHATASE 101 U/L (45-117); ALT (GPT) 15 U/L (12-78); ANION GAP 9 MEQ/L (5-15); AST (GOT) 16 U/L (15-37); BICARBONATE 28.5 MEQ/L (21.0-32.0); BLOOD UREA NITROGEN 3 MG/DL (7-18); CHLORIDE 111 MEQ/L (98-107); GLOMERULAR FILTRATION RATE 195 ML/MIN (>89); MAGNESIUM 2.1 MG/DL (1.5-2.5); POTASSIUM 4.1 MEQ/L (3.5-5.1); SODIUM (NA) 148 MEQ/L (136-145); TOTAL BILIRUBIN ADULT 0.5 MG/DL (0.2-1.0)
[2016-05-16] MEDS: CEFEPIME INJ 2,000 MG in SODIUM CHLORIDE 0.9% INJ 100 ML IV SCH ×3 (05:06→22:02)
[2016-05-16] MEDS: INSULIN NovoLIN REGULAR SUPPLEMENTAL SCALE SQ SCH ×3 (05:07→18:00)
[2016-05-16] MEDS: METOCLOPRAMIDE HCL 10 MG/2 ML VIAL IV PUSH SCH ×3 (05:07→21:03)
[2016-05-16] MEDS: BACLOFEN 20 MG TAB PO SCH ×3 (05:07→21:03)
[2016-05-16] MEDS: MORPHINE SULFATE ORAL SOLN 10 MG/0.5 ML SYRINGE PO SCH ×4 (05:07→23:06)
[2016-05-16] MEDS: ALPRAZolam 1 MG TAB PO SCH ×3 (05:07→21:03)
[2016-05-16] MEDS: SENNOSIDES SYRUP 8.8 MG/5 ML CUP G-TUBE SCH ×2 (06:39→18:02)
[2016-05-16] MEDS: CHLORHEXIDINE 0.12% (ORAL KIT) 15 ML CUP MT SCH ×2 (08:00→20:41)
[2016-05-16] MEDS: ARTIFICIAL TEARS OPTH SOLN 15 ML BTL EACH EYE SCH ×3 (08:49→18:00)
[2016-05-16] MEDS: BENEPROTEIN POWDER 1 PACK G-TUBE SCH ×3 (08:49→18:00)
[2016-05-16] MEDS: [UNRECOGNIZED DRUG - REMARK] PO SCH ×2 (08:59→21:02)
[2016-05-16] MEDS: RIFAXIMIN 550 MG TAB PO SCH ×2 (08:59→21:01)
[2016-05-16] MEDS: GABAPENTIN 400 MG CAP PO SCH ×3 (09:00→18:03)
[2016-05-16] MEDS: LACTULOSE SYRUP 20 GM/30 ML CUP PO SCH (09:00)
[2016-05-16] MEDS: SODIUM CHLORIDE 0.9% FLUSH 5 ML FLUSH IV FLUSH SCH ×2 (09:00→21:00)
[2016-05-16] MEDS: ENOXAPARIN SODIUM 40 MG/0.4 ML SYRINGE SQ SCH (09:00)
[2016-05-16] MEDS: DOCUSATE SODIUM 100 MG/10 ML UDC G-TUBE SCH ×2 (09:00→21:02)
[2016-05-16] MEDS: PANTOPRAZOLE SODIUM 40 MG VIAL IV SCH (09:01)
[2016-05-16] MEDS ORDERED: LACTULOSE SYRUP 20 GM/30 ML CUP PO ONE (15:00)
[2016-05-16] MEDS ORDERED: POLYETHYLENE GLYCOL 17 GM PKG PO ONE (15:00)
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
[2016-05-16] MEDS: VANCOMYCIN 1,500 MG/NS 500 ML IV SCH ×2 (18:03)
[2016-05-16] MEDS: AZITHROMYCIN INJ 500 MG in SODIUM CHLOR 0.9% 250 ML INJ 250 ML IV SCH (23:05)
[2016-05-17] VITALS (14 sets, daily range): BP systolic 113–159; BP diastolic 51–87; PULSE 58–74; RESP 12–22; TEMP 97.7–98.5; O2SAT 90–94
[2016-05-17] MEDS: CHLORHEXIDINE GLUCONATE 2 % 1 PACK (2 CLOTHS) TOP SCH (04:00)
[2016-05-17] MEDS: RESP: ALBUTEROL 2.5 MG/IPRATROPIUM 0.5 MG NEB (SCH) INH ×6 (04:00→23:41)
[2016-05-17 05:10] LABS: AUTOMATED NEUTROPHIL # 5.3 TH/MM3 (1.8-7.7); BASOPHIL % 0.6 % (0.0-2.0); EOSINOPHIL # 0.3 TH/MM3 (0-0.4); EOSINOPHIL % 4.8 % (0.0-4.0); HEMO FLAGS DIFF FINAL; LYMPH % 12.9 % (9.0-44.0); LYMPHOCYTE # 0.9 TH/MM3 (1.0-4.8); MEAN CELL VOLUME 84.6 FL (80.0-100.0); MEAN CORPUSCULAR HGB CONC 33.2 % (32.0-36.0); MONO % 6.9 % (0.0-8.0); NEUT % 74.8 % (16.0-70.0); PLATELET COUNT 139 TH/MM3 (150-450); RED BLOOD COUNT 4.96 MIL/MM3 (4.50-5.90); RED CELL DISTRIBUTION WIDTH 14.2 % (11.6-17.2)
[2016-05-17] MEDS: BACLOFEN 20 MG TAB PO SCH ×3 (05:24→21:19)
[2016-05-17] MEDS: METOCLOPRAMIDE HCL 10 MG/2 ML VIAL IV PUSH SCH ×3 (05:24→21:17)
[2016-05-17] MEDS: CEFEPIME INJ 2,000 MG in SODIUM CHLORIDE 0.9% INJ 100 ML IV SCH ×3 (05:24→23:31)
[2016-05-17] MEDS: ALPRAZolam 1 MG TAB PO SCH ×3 (05:24→21:16)
[2016-05-17] MEDS: MORPHINE SULFATE ORAL SOLN 10 MG/0.5 ML SYRINGE PO SCH ×4 (05:25→23:29)
[2016-05-17 05:59] LABS: BICARBONATE 28.2 MEQ/L (21.0-32.0)
[2016-05-17] MEDS: INSULIN NovoLIN REGULAR SUPPLEMENTAL SCALE SQ SCH ×4 (06:00→17:01)
[2016-05-17] MEDS: SENNOSIDES SYRUP 8.8 MG/5 ML CUP G-TUBE SCH ×2 (06:30→17:01)
[2016-05-17] MEDS: CHLORHEXIDINE 0.12% (ORAL KIT) 15 ML CUP MT SCH ×2 (07:57→20:00)
[2016-05-17] MEDS: DOCUSATE SODIUM 100 MG/10 ML UDC G-TUBE SCH ×2 (09:00→21:22)
[2016-05-17] MEDS: LACTULOSE SYRUP 20 GM/30 ML CUP PO SCH (09:00)
[2016-05-17] MEDS: BENEPROTEIN POWDER 1 PACK G-TUBE SCH ×3 (09:00→17:01)
[2016-05-17] MEDS: ARTIFICIAL TEARS OPTH SOLN 15 ML BTL EACH EYE SCH ×3 (09:00→17:01)
[2016-05-17] MEDS: POLYETHYLENE GLYCOL 17 GM PKG PO SCH (09:00)
[2016-05-17] MEDS: [UNRECOGNIZED DRUG - REMARK] PO SCH ×2 (09:00→21:00)
[2016-05-17] MEDS: ENOXAPARIN SODIUM 40 MG/0.4 ML SYRINGE SQ SCH (09:00)
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
[2016-05-17] MEDS: GABAPENTIN 400 MG CAP PO SCH ×3 (09:58→17:43)
[2016-05-17] MEDS: RIFAXIMIN 550 MG TAB PO SCH ×2 (09:58→21:16)
[2016-05-17] MEDS: PANTOPRAZOLE SODIUM 40 MG VIAL IV SCH (09:59)
[2016-05-17] MEDS: SODIUM CHLORIDE 0.9% FLUSH 5 ML FLUSH IV FLUSH SCH ×2 (10:00→23:29)
[2016-05-17] MEDS: VANCOMYCIN 1,500 MG/NS 500 ML IV SCH ×2 (11:23)
[2016-05-17 13:18] LABS: BACTERIA, URINE RARE /hpf; BLOOD, URINE NEG (NEG); COMMENT (UR) CATH-CULTURE IND; CULTURE IF INDICATED CATH CULTURE IND; GLUCOSE,URINE NEG (NEG); KETONE, URINE NEG (NEG); MUCUS URINE FEW /lpf (OCC); NITRITE,URINE NEG (NEG); SQUAMOUS EPITHELIAL CELL URINE <1 /hpf (0-5); URINE COLOR LIGHT-YELLOW (YELLW/STRAW)
[2016-05-17] MEDS: AZITHROMYCIN INJ 500 MG in SODIUM CHLOR 0.9% 250 ML INJ 250 ML IV SCH (23:00)
[2016-05-18] VITALS (11 sets, daily range): BP systolic 137–179; BP diastolic 80–99; PULSE 49–70; RESP 14–20; TEMP 97.7–98.7; O2SAT 85–92
[2016-05-18] MEDS: CEFEPIME INJ 2,000 MG in SODIUM CHLORIDE 0.9% INJ 100 ML IV SCH ×3 (00:46→22:20)
[2016-05-18] MEDS: CHLORHEXIDINE GLUCONATE 2 % 1 PACK (2 CLOTHS) TOP SCH (04:00)
[2016-05-18] MEDS: METOCLOPRAMIDE HCL 10 MG/2 ML VIAL IV PUSH SCH ×3 (05:30→21:12)
[2016-05-18] MEDS: VANCOMYCIN 1,500 MG/NS 500 ML IV SCH ×4 (05:30→12:07)
[2016-05-18] MEDS: SENNOSIDES SYRUP 8.8 MG/5 ML CUP G-TUBE SCH ×2 (05:32→19:00)
[2016-05-18] MEDS ORDERED: PHARMACY ORDERED LAB XX ONE (05:45)
--- NOTE | 2016-05-18 05:57 | RADRPT ---
EXAM DATE/TIME: 05/18/2016 04:10 [facility] COMPARISON: CHEST SINGLE AP, May 15, 2016, 4:52. INDICATIONS : Shortness of breath. MEDICAL HISTORY : Seizures. SURGICAL HISTORY : None. ENCOUNTER: Subsequent ACUITY: 1 week PAIN SCORE: Non-responsive. LOCATION: Bilateral chest FINDINGS: A single portable frontal view of the chest shows low lung volumes. Patchy vague areas of atelectasis are seen within both lung bases. These are stable. No effusions. Heart is normal in size. CONCLUSION: Bibasilar atelectasis. This is largely unchanged. Marcelino Morfin Jr., MD on May 18, 2016 at 5:55 Board Certified Radiologist. This report was verified electronically.
[2016-05-18] MEDS: BACLOFEN 20 MG TAB PO SCH ×3 (05:58→21:07)
[2016-05-18] MEDS: MORPHINE SULFATE ORAL SOLN 10 MG/0.5 ML SYRINGE PO SCH ×3 (05:58→21:03)
[2016-05-18] MEDS: ALPRAZolam 1 MG TAB PO SCH ×3 (05:58→21:07)
[2016-05-18] MEDS: INSULIN NovoLIN REGULAR SUPPLEMENTAL SCALE SQ SCH ×4 (05:59→17:23)
[2016-05-18] MEDS: CHLORHEXIDINE 0.12% (ORAL KIT) 15 ML CUP MT SCH ×2 (08:00→20:00)
[2016-05-18] MEDS: RESP: ALBUTEROL 2.5 MG/IPRATROPIUM 0.5 MG NEB (SCH) INH (08:20)
[2016-05-18 08:48] LABS: CRITICAL VALUE YES
[2016-05-18 08:49] LABS: NUMBER OF ARTERIAL PUNCTURES 1
[2016-05-18] MEDS: DOCUSATE SODIUM 100 MG/10 ML UDC G-TUBE SCH ×2 (09:00→21:00)
[2016-05-18] MEDS: ARTIFICIAL TEARS OPTH SOLN 15 ML BTL EACH EYE SCH ×3 (09:00→18:00)
[2016-05-18] MEDS: BENEPROTEIN POWDER 1 PACK G-TUBE SCH ×3 (09:00→16:00)
[2016-05-18] MEDS: PANTOPRAZOLE SODIUM 40 MG VIAL IV SCH (09:00)
[2016-05-18] MEDS: SODIUM CHLORIDE 0.9% FLUSH 5 ML FLUSH IV FLUSH SCH ×2 (09:00→21:10)
[2016-05-18] MEDS: LACTULOSE SYRUP 20 GM/30 ML CUP PO SCH (09:01)
[2016-05-18] MEDS: ENOXAPARIN SODIUM 40 MG/0.4 ML SYRINGE SQ SCH (09:02)
[2016-05-18] MEDS: POLYETHYLENE GLYCOL 17 GM PKG PO SCH (09:02)
[2016-05-18] MEDS: GABAPENTIN 400 MG CAP PO SCH ×3 (09:02→18:13)
[2016-05-18] MEDS: RIFAXIMIN 550 MG TAB PO SCH ×2 (09:02→21:08)
[2016-05-18] MEDS: [UNRECOGNIZED DRUG - REMARK] PO SCH ×2 (09:04→21:00)
[2016-05-18 11:41] LABS: ALT (GPT) 25 U/L (12-78); ANION GAP 7 MEQ/L (5-15); AST (GOT) 26 U/L (15-37); BICARBONATE 30.4 MEQ/L (21.0-32.0); BLOOD UREA NITROGEN 5 MG/DL (7-18); CHLORIDE 106 MEQ/L (98-107); GLOMERULAR FILTRATION RATE 182 ML/MIN (>89); MAGNESIUM 2.4 MG/DL (1.5-2.5); SODIUM (NA) 143 MEQ/L (136-145)
[2016-05-18 11:42] LABS: ALKALINE PHOSPHATASE 101 U/L (45-117); TOTAL BILIRUBIN ADULT 0.7 MG/DL (0.2-1.0)
[2016-05-18 11:49] LABS: POTASSIUM 4.4 MEQ/L (3.5-5.1)
[2016-05-18 13:55] LABS: BASOPHIL # 0.1 TH/MM3 (0-0.2); BASOPHIL % 0.9 % (0.0-2.0); EOSINOPHIL # 0.4 TH/MM3 (0-0.4); EOSINOPHIL % 6.8 % (0.0-4.0); HEMATOCRIT 43.7 % (39.0-51.0); HEMO FLAGS DIFF FINAL; LYMPH % 21.3 % (9.0-44.0); LYMPHOCYTE # 1.4 TH/MM3 (1.0-4.8); MEAN CELL VOLUME 83.6 FL (80.0-100.0); MEAN CORPUSCULAR HEMOGLOBIN 27.5 PG (27.0-34.0); MEAN CORPUSCULAR HGB CONC 32.9 % (32.0-36.0); MONO % 9.3 % (0.0-8.0); NEUT % 61.7 % (16.0-70.0); PLATELET COUNT 208 TH/MM3 (150-450); RED BLOOD COUNT 5.22 MIL/MM3 (4.50-5.90); RED CELL DISTRIBUTION WIDTH 14.1 % (11.6-17.2); WHITE BLOOD COUNT 6.4 TH/MM3 (4.0-11.0)
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
[2016-05-18] MEDS ORDERED: ENALAPRILAT 1.25 MG/ML VIAL IV PUSH PRN (17:45)
[2016-05-18] MEDS: AZITHROMYCIN INJ 500 MG in SODIUM CHLOR 0.9% 250 ML INJ 250 ML IV SCH (23:30)
[2016-05-19] VITALS (8 sets, daily range): BP systolic 108–142; BP diastolic 76–99; PULSE 67–88; RESP 18–22; TEMP 96.9–98.3; O2SAT 60–96
[2016-05-19] MEDS: MORPHINE SULFATE ORAL SOLN 10 MG/0.5 ML SYRINGE PO SCH ×2 (03:26→09:32)
[2016-05-19] MEDS: CHLORHEXIDINE GLUCONATE 2 % 1 PACK (2 CLOTHS) TOP SCH ×2 (03:26→20:46)
[2016-05-19] MEDS ORDERED: PERC10TA27 PO (04:52)
[2016-05-19] MEDS ORDERED: NEUR800T PO (04:52)
[2016-05-19] MEDS ORDERED: BACL20TA PO (04:52)
[2016-05-19] MEDS ORDERED: XANA2TAB2 PO (04:52)
[2016-05-19] MEDS: BACLOFEN 20 MG TAB PO SCH ×3 (05:54→22:34)
[2016-05-19] MEDS: CEFEPIME INJ 2,000 MG in SODIUM CHLORIDE 0.9% INJ 100 ML IV SCH ×3 (05:57→22:41)
[2016-05-19] MEDS: METOCLOPRAMIDE HCL 10 MG/2 ML VIAL IV PUSH SCH ×3 (05:58→22:00)
[2016-05-19] MEDS: ALPRAZolam 1 MG TAB PO SCH ×3 (05:59→22:36)
[2016-05-19] MEDS: INSULIN NovoLIN REGULAR SUPPLEMENTAL SCALE SQ SCH ×4 (05:59→18:00)
[2016-05-19] MEDS: VANCOMYCIN 1,500 MG/NS 500 ML IV SCH ×2 (06:00)
[2016-05-19] MEDS ORDERED: MORP1TAB27 PO (06:14)
[2016-05-19] MEDS: SENNOSIDES SYRUP 8.8 MG/5 ML CUP G-TUBE SCH ×2 (07:00→18:03)
[2016-05-19] MEDS: CHLORHEXIDINE 0.12% (ORAL KIT) 15 ML CUP MT SCH ×2 (08:00→20:00)
[2016-05-19] MEDS: RESP: ALBUTEROL 2.5 MG/IPRATROPIUM 0.5 MG NEB (SCH) INH ×3 (08:20→21:51)
[2016-05-19] MEDS: BENEPROTEIN POWDER 1 PACK G-TUBE SCH ×3 (09:00→18:00)
[2016-05-19] MEDS: DOCUSATE SODIUM 100 MG/10 ML UDC G-TUBE SCH ×2 (09:00→21:00)
[2016-05-19] MEDS: RIFAXIMIN 550 MG TAB PO SCH ×2 (09:00→22:34)
[2016-05-19] MEDS: [UNRECOGNIZED DRUG - REMARK] PO SCH ×2 (09:00→21:00)
[2016-05-19] MEDS: POLYETHYLENE GLYCOL 17 GM PKG PO SCH (09:00)
[2016-05-19] MEDS: SODIUM CHLORIDE 0.9% FLUSH 5 ML FLUSH IV FLUSH SCH ×2 (09:00→22:28)
[2016-05-19] MEDS: LACTULOSE SYRUP 20 GM/30 ML CUP PO SCH (09:00)
[2016-05-19] MEDS: ARTIFICIAL TEARS OPTH SOLN 15 ML BTL EACH EYE SCH ×3 (09:00→18:00)
[2016-05-19] MEDS: PANTOPRAZOLE SODIUM 40 MG VIAL IV SCH (09:30)
[2016-05-19] MEDS: ENOXAPARIN SODIUM 40 MG/0.4 ML SYRINGE SQ SCH (09:30)
[2016-05-19] MEDS: GABAPENTIN 400 MG CAP PO SCH ×3 (09:32→18:02)
[2016-05-19] MEDS ORDERED: oxyCODONE/ACETAMINOPHEN 5 MG/325 MG TAB PO PRN (12:15)
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
[2016-05-19] MEDS: MORPHINE SULFATE 30 MG CONTROLLED RELEASE TAB PO SCH ×2 (14:50→22:34)
[2016-05-19] MEDS: oxyCODONE/ACETAMINOPHEN 10 MG/325 MG TAB PO PRN (18:02)
[2016-05-19] MEDS: NICOTINE 21 MG/24 HR PATCH TD SCH (22:31)
[2016-05-19] MEDS ORDERED: PHARMACY ORDERED LAB XX ONE (23:45)
[2016-05-20] VITALS (8 sets, daily range): BP systolic 107–124; BP diastolic 68–76; PULSE 60–87; RESP 18–21; TEMP 95.3–97; O2SAT 90–96
[2016-05-20] MEDS: oxyCODONE/ACETAMINOPHEN 10 MG/325 MG TAB PO PRN ×3 (02:00→17:55)
[2016-05-20] MEDS: RESP: ALBUTEROL 2.5 MG/IPRATROPIUM 0.5 MG NEB (SCH) INH ×5 (03:14→21:14)
[2016-05-20] MEDS: ALPRAZolam 1 MG TAB PO SCH ×3 (06:00→22:08)
[2016-05-20] MEDS: METOCLOPRAMIDE HCL 10 MG/2 ML VIAL IV PUSH SCH ×3 (06:00→22:09)
[2016-05-20] MEDS: MORPHINE SULFATE 30 MG CONTROLLED RELEASE TAB PO SCH ×3 (06:00→22:08)
[2016-05-20] MEDS: BACLOFEN 20 MG TAB PO SCH ×3 (06:00→22:08)
[2016-05-20] MEDS: INSULIN NovoLIN REGULAR SUPPLEMENTAL SCALE SQ SCH ×4 (06:00→18:00)
[2016-05-20] MEDS: SENNOSIDES SYRUP 8.8 MG/5 ML CUP G-TUBE SCH ×2 (06:01→17:09)
[2016-05-20] MEDS: CEFEPIME INJ 2,000 MG in SODIUM CHLORIDE 0.9% INJ 100 ML IV SCH ×3 (06:03→22:10)
[2016-05-20] MEDS: CHLORHEXIDINE 0.12% (ORAL KIT) 15 ML CUP MT SCH ×2 (08:00→20:00)
[2016-05-20] MEDS: DOCUSATE SODIUM 100 MG/10 ML UDC G-TUBE SCH ×2 (09:00→21:00)
[2016-05-20] MEDS: POLYETHYLENE GLYCOL 17 GM PKG PO SCH (09:00)
[2016-05-20] MEDS: ARTIFICIAL TEARS OPTH SOLN 15 ML BTL EACH EYE SCH ×3 (09:00→17:56)
[2016-05-20] MEDS: [UNRECOGNIZED DRUG - REMARK] PO SCH ×2 (09:00→21:00)
[2016-05-20] MEDS: BENEPROTEIN POWDER 1 PACK G-TUBE SCH ×3 (09:00→17:56)
[2016-05-20] MEDS: LACTULOSE SYRUP 20 GM/30 ML CUP PO SCH (09:00)
[2016-05-20] MEDS: SODIUM CHLORIDE 0.9% FLUSH 5 ML FLUSH IV FLUSH SCH ×2 (09:00→22:10)
[2016-05-20] MEDS: REMOVE OLD NICODERM (NICOTINE) PATCH TD SCH (09:00)
[2016-05-20 09:24] LABS: HEMATOCRIT 47.9 % (39.0-51.0); MEAN CELL VOLUME 83.7 FL (80.0-100.0); MEAN CORPUSCULAR HEMOGLOBIN 27.3 PG (27.0-34.0); MEAN CORPUSCULAR HGB CONC 32.7 % (32.0-36.0); PLATELET COUNT 222 TH/MM3 (150-450); RED BLOOD COUNT 5.72 MIL/MM3 (4.50-5.90); RED CELL DISTRIBUTION WIDTH 14.3 % (11.6-17.2); REVIEW FLAG FINAL; WHITE BLOOD COUNT 6.4 TH/MM3 (4.0-11.0)
[2016-05-20] MEDS: GABAPENTIN 400 MG CAP PO SCH ×3 (09:37→17:55)
[2016-05-20] MEDS: PANTOPRAZOLE SODIUM 40 MG VIAL IV SCH (09:37)
[2016-05-20] MEDS: ENOXAPARIN SODIUM 40 MG/0.4 ML SYRINGE SQ SCH (09:38)
[2016-05-20] MEDS: RIFAXIMIN 550 MG TAB PO SCH ×2 (09:38→22:09)
[2016-05-20] MEDS: NICOTINE 21 MG/24 HR PATCH TD SCH (09:39)
[2016-05-20 09:56] LABS: BICARBONATE 26.5 MEQ/L (21.0-32.0)
[2016-05-20 09:57] LABS: POTASSIUM 3.9 MEQ/L (3.5-5.1)
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
[2016-05-20] MEDS ORDERED: PIPERACIL-TAZO 3.375 GM PREMIX 50 ML IV SCH (14:00)
[2016-05-20] MEDS: PIPERACIL-TAZO 3.375 GM PREMIX 50 ML IV SCH ×2 (17:55→22:10)
[2016-05-21] VITALS (7 sets, daily range): BP systolic 97–121; BP diastolic 51–75; PULSE 67–88; RESP 16–20; TEMP 95.8–97.9; O2SAT 92–94
[2016-05-21] MEDS: CHLORHEXIDINE GLUCONATE 2 % 1 PACK (2 CLOTHS) TOP SCH (04:00)
[2016-05-21] MEDS: RESP: ALBUTEROL 2.5 MG/IPRATROPIUM 0.5 MG NEB (SCH) INH (04:00)
[2016-05-21] MEDS: PIPERACIL-TAZO 3.375 GM PREMIX 50 ML IV SCH ×4 (05:52→21:58)
[2016-05-21] MEDS: CEFEPIME INJ 2,000 MG in SODIUM CHLORIDE 0.9% INJ 100 ML IV SCH ×3 (05:54→22:02)
[2016-05-21] MEDS: BACLOFEN 20 MG TAB PO SCH ×3 (05:56→21:59)
[2016-05-21] MEDS: MORPHINE SULFATE 30 MG CONTROLLED RELEASE TAB PO SCH ×3 (05:56→21:59)
[2016-05-21] MEDS: METOCLOPRAMIDE HCL 10 MG/2 ML VIAL IV PUSH SCH (05:56)
[2016-05-21] MEDS: ALPRAZolam 1 MG TAB PO SCH ×3 (05:56→21:59)
[2016-05-21] MEDS: INSULIN NovoLIN REGULAR SUPPLEMENTAL SCALE SQ SCH ×4 (06:00→18:00)
[2016-05-21] MEDS: SENNOSIDES SYRUP 8.8 MG/5 ML CUP G-TUBE SCH ×2 (06:04→19:00)
[2016-05-21] MEDS: CHLORHEXIDINE 0.12% (ORAL KIT) 15 ML CUP MT SCH ×2 (08:00→20:00)
[2016-05-21] MEDS: ENOXAPARIN SODIUM 40 MG/0.4 ML SYRINGE SQ SCH (08:09)
[2016-05-21] MEDS: RIFAXIMIN 550 MG TAB PO SCH ×2 (08:09→21:58)
[2016-05-21] MEDS: PANTOPRAZOLE SODIUM 40 MG VIAL IV SCH (08:10)
[2016-05-21] MEDS: GABAPENTIN 400 MG CAP PO SCH ×3 (08:10→17:57)
[2016-05-21] MEDS: oxyCODONE/ACETAMINOPHEN 10 MG/325 MG TAB PO PRN ×2 (08:10→17:57)
[2016-05-21] MEDS: ARTIFICIAL TEARS OPTH SOLN 15 ML BTL EACH EYE SCH ×3 (08:14→18:00)
[2016-05-21] MEDS: [UNRECOGNIZED DRUG - REMARK] PO SCH ×2 (08:14→21:00)
[2016-05-21] MEDS: SODIUM CHLORIDE 0.9% FLUSH 5 ML FLUSH IV FLUSH SCH ×2 (08:14→21:00)
[2016-05-21] MEDS: BENEPROTEIN POWDER 1 PACK G-TUBE SCH ×3 (08:14→18:00)
[2016-05-21] MEDS: LACTULOSE SYRUP 20 GM/30 ML CUP PO SCH (08:14)
[2016-05-21] MEDS: DOCUSATE SODIUM 100 MG/10 ML UDC G-TUBE SCH ×2 (08:14→21:00)
[2016-05-21] MEDS: NICOTINE 21 MG/24 HR PATCH TD SCH (08:15)
[2016-05-21] MEDS: POLYETHYLENE GLYCOL 17 GM PKG PO SCH (08:15)
[2016-05-21] MEDS: REMOVE OLD NICODERM (NICOTINE) PATCH TD SCH (08:15)
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
[2016-05-22] VITALS (9 sets, daily range): BP systolic 97–133; BP diastolic 56–79; PULSE 66–92; RESP 18–22; TEMP 96.4–98; O2SAT 92–95
[2016-05-22] MEDS: oxyCODONE/ACETAMINOPHEN 10 MG/325 MG TAB PO PRN ×4 (00:47→21:57)
[2016-05-22] MEDS: CHLORHEXIDINE GLUCONATE 2 % 1 PACK (2 CLOTHS) TOP SCH (04:00)
[2016-05-22] MEDS: PIPERACIL-TAZO 3.375 GM PREMIX 50 ML IV SCH ×4 (04:42→22:00)
[2016-05-22] MEDS: INSULIN NovoLIN REGULAR SUPPLEMENTAL SCALE SQ SCH ×4 (06:00→16:32)
[2016-05-22] MEDS: CEFEPIME INJ 2,000 MG in SODIUM CHLORIDE 0.9% INJ 100 ML IV SCH ×2 (06:33→14:50)
[2016-05-22] MEDS: ALPRAZolam 1 MG TAB PO SCH ×3 (06:33→21:58)
[2016-05-22] MEDS: BACLOFEN 20 MG TAB PO SCH ×3 (06:33→21:58)
[2016-05-22] MEDS: MORPHINE SULFATE 30 MG CONTROLLED RELEASE TAB PO SCH (06:34)
[2016-05-22] MEDS: SENNOSIDES SYRUP 8.8 MG/5 ML CUP G-TUBE SCH ×2 (06:34→19:00)
[2016-05-22] MEDS: CHLORHEXIDINE 0.12% (ORAL KIT) 15 ML CUP MT SCH ×2 (08:00→20:00)
[2016-05-22] MEDS: SODIUM CHLORIDE 0.9% FLUSH 5 ML FLUSH IV FLUSH SCH ×2 (09:00→21:00)
[2016-05-22] MEDS: BENEPROTEIN POWDER 1 PACK G-TUBE SCH ×3 (09:00→17:34)
[2016-05-22] MEDS: REMOVE OLD NICODERM (NICOTINE) PATCH TD SCH (09:00)
[2016-05-22] MEDS: LACTULOSE SYRUP 20 GM/30 ML CUP PO SCH (09:18)
[2016-05-22] MEDS: GABAPENTIN 400 MG CAP PO SCH ×3 (09:19→18:00)
[2016-05-22] MEDS: DOCUSATE SODIUM 100 MG/10 ML UDC G-TUBE SCH ×2 (09:19→21:00)
[2016-05-22] MEDS: PANTOPRAZOLE SODIUM 40 MG VIAL IV SCH (09:20)
[2016-05-22] MEDS: ENOXAPARIN SODIUM 40 MG/0.4 ML SYRINGE SQ SCH (09:20)
[2016-05-22] MEDS: ARTIFICIAL TEARS OPTH SOLN 15 ML BTL EACH EYE SCH ×3 (09:21→17:35)
[2016-05-22] MEDS: NICOTINE 21 MG/24 HR PATCH TD SCH (09:22)
[2016-05-22] MEDS: POLYETHYLENE GLYCOL 17 GM PKG PO SCH (09:22)
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
[2016-05-22] MEDS: RIFAXIMIN 550 MG TAB PO SCH ×2 (13:43→21:56)
[2016-05-22] MEDS: MORPHINE SULFATE 60 MG CONTROLLED RELEASE TAB PO SCH ×2 (13:44→21:57)
[2016-05-22] MEDS: [UNRECOGNIZED DRUG - REMARK] PO SCH ×2 (14:49→21:00)
--- NOTE | 2016-05-22 21:29 | HHI.IDPN ---
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 Vital Signs Date Time Temp Pulse Resp B/P Pulse Ox O2 Delivery O2 Flow Rate FiO2 05/22/16 18:07 92 21 05/22/16 16:00 96.7 69 20 133/79 92 05/22/16 12:00 96.4 68 20 116/67 92 05/22/16 09:30 93 21 05/22/16 08:00 97.8 92 22 110/60 92 05/22/16 08:00 Room Air 05/22/16 04:00 98.0 77 18 97/56 94 05/22/16 00:00 97.9 71 18 124/73 95 05/21/16 05/21/16 05/22/16 15:00 23:00 07:00 Intake Total 600 ml Output Total 1000 ml 900 ml Balance -400 ml -900 ml Intake Oral 600 ml Output Urine Total 1000 ml 900 ml # Bowel Movements 1 3 Imaging Last Impressions Chest X-Ray 05/18/16 0600 Signed Impressions: Service Date/Time: Wednesday, May 18, 2016 04:10 - CONCLUSION: Bibasilar atelectasis. This is largely unchanged. Marcelino Morfin Jr., MD Abdomen X-Ray 05/14/16 0000 Signed Impressions: Service Date/Time: April 15:37 - CONCLUSION: The left renal stones are poorly visualized due to body habitus and patient positioning. However, the stones previously documented at the left upper and lower pole are visualized with the largest measuring 11 mm. Malcolm Nelson MD Abdomen/Pelvis CT 05/13/162135 Signed Impressions: Service Date/Time: Friday, May 13, 2016 22:30 - CONCLUSION: 1. Bilateral lower lobe consolidation. 2. Atherosclerosis. 3. Left renal calculi are noted. Felice Cho MD Head CT 05/13/162037 Signed Impressions: Service Date/Time: Friday, May 13, 2016 22:25 - CONCLUSION: Right maxillary sinus fluid. Stable appearance of the brain. Felice Cho MD Physical Exam CONSTITUTIONAL/GENERAL: This is an adequately nourished patient, in no apparent distress. SKIN: No jaundice, rashes, or lesions. Ecchymoses on R upper extremity resolved. EYES: Pupils equal and round and reactive. Extraocular motions intact. No scleral icterus. No injection or drainage. Fundi not examined. CARDIOVASCULAR: Regular rate and rhythm without murmurs, gallops, or rubs. No JVD. Peripheral pulses symmetric. RESPIRATORY/CHEST: Symmetric, unlabored respirations. Clear to auscultation. Breath sounds equal bilaterally. GASTROINTESTINAL: Abdomen soft, non-tender, nondistended. Bowel sounds present. GENITOURINARY: Without palpable bladder distension. SP catheter in place; urine clear MUSCULOSKELETAL: Extremities without clubbing, cyanosis, or edema. Sp R AKA NEUROLOGICAL: Awake and alert. Normal speech Moves R upper extremity only PSYCHIATRIC: calm, cooperative Assessment & Plan Remarks UTI, in pt with neurogenic bladder and kidney stones - seen by urologist - repeat clx with < 10 K GNB URINE CULTURE with PSEUDOMONAS AERUGINOSA, ENTEROCOCCUS FAECALIS CaNDIDURIA ? CLIN SIGNIFICANCE Sepsis 2/2 UTI Coag negative staph bacteremia, different morphologies doubt clin significance - non recurrent - 2 D echo negative - no risk factors predisposing to coag neg sepsi (e.i. cardiac and vascular devisces) sp resolved VDRF 2/2 aspiration PNA Rec's: - cont zosyn (will cover both PSAE, enterococcus) - DC cefepime Maddie Saunders MD May 22, 2016 21:29
[2016-05-23 00:35] VITALS: BP 119/69; PULSE 68; RESP 19; TEMP 97.1; O2SAT 94
[2016-05-23] MEDS: CHLORHEXIDINE GLUCONATE 2 % 1 PACK (2 CLOTHS) TOP SCH (04:00)
[2016-05-23 05:30] VITALS: BP 112/66; PULSE 69; RESP 22; TEMP 97.9; O2SAT 95
[2016-05-23] MEDS: BACLOFEN 20 MG TAB PO SCH ×3 (05:40→22:30)
[2016-05-23] MEDS: MORPHINE SULFATE 60 MG CONTROLLED RELEASE TAB PO SCH ×3 (05:40→22:30)
[2016-05-23] MEDS: ALPRAZolam 1 MG TAB PO SCH ×3 (05:40→22:30)
[2016-05-23] MEDS: PIPERACIL-TAZO 3.375 GM PREMIX 50 ML IV SCH ×4 (05:41→22:29)
[2016-05-23] MEDS: INSULIN NovoLIN REGULAR SUPPLEMENTAL SCALE SQ SCH ×5 (05:48→22:30)
[2016-05-23] MEDS: SENNOSIDES SYRUP 8.8 MG/5 ML CUP G-TUBE SCH ×2 (07:00→16:55)
[2016-05-23] MEDS: BENEPROTEIN POWDER 1 PACK G-TUBE SCH ×3 (07:29→16:55)
[2016-05-23] MEDS: CHLORHEXIDINE 0.12% (ORAL KIT) 15 ML CUP MT SCH ×2 (07:29→20:00)
[2016-05-23] MEDS: DOCUSATE SODIUM 100 MG/10 ML UDC G-TUBE SCH ×2 (07:29→21:00)
[2016-05-23] MEDS: LACTULOSE SYRUP 20 GM/30 ML CUP PO SCH (07:30)
[2016-05-23] MEDS: POLYETHYLENE GLYCOL 17 GM PKG PO SCH (07:30)
[2016-05-23] MEDS: oxyCODONE/ACETAMINOPHEN 10 MG/325 MG TAB PO PRN ×2 (08:17→15:13)
[2016-05-23] MEDS: RIFAXIMIN 550 MG TAB PO SCH ×2 (08:17→22:29)
[2016-05-23] MEDS: GABAPENTIN 400 MG CAP PO SCH ×3 (08:18→17:29)
[2016-05-23] MEDS: ENOXAPARIN SODIUM 40 MG/0.4 ML SYRINGE SQ SCH (08:18)
[2016-05-23] MEDS: PANTOPRAZOLE SODIUM 40 MG VIAL IV SCH (08:18)
[2016-05-23] MEDS: [UNRECOGNIZED DRUG - REMARK] PO SCH ×2 (08:18→21:00)
[2016-05-23] MEDS: ARTIFICIAL TEARS OPTH SOLN 15 ML BTL EACH EYE SCH ×3 (08:19→16:57)
[2016-05-23] MEDS: SODIUM CHLORIDE 0.9% FLUSH 5 ML FLUSH IV FLUSH SCH ×2 (08:19→22:31)
[2016-05-23] MEDS: NICOTINE 21 MG/24 HR PATCH TD SCH (08:20)
[2016-05-23] MEDS: REMOVE OLD NICODERM (NICOTINE) PATCH TD SCH (08:20)
[2016-05-23 08:27] VITALS: BP 114/62; PULSE 78; RESP 16; TEMP 96.4; O2SAT 91
[2016-05-23 12:14] VITALS: O2SAT 93
[2016-05-23 12:50] VITALS: BP 117/64; PULSE 68; RESP 14; TEMP 96.4; O2SAT 91
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
[2016-05-23 20:00] VITALS: BP 104/55; PULSE 68; PULSE 69; RESP 20; TEMP 96.5; O2SAT 90
[2016-05-24] VITALS (7 sets, daily range): BP systolic 95–121; BP diastolic 58–71; PULSE 61–76; RESP 17–20; TEMP 96.2–97.1; O2SAT 92–94
[2016-05-24] MEDS: oxyCODONE/ACETAMINOPHEN 10 MG/325 MG TAB PO PRN ×4 (01:22→23:10)
[2016-05-24] MEDS: CHLORHEXIDINE GLUCONATE 2 % 1 PACK (2 CLOTHS) TOP SCH (03:53)
[2016-05-24] MEDS: BACLOFEN 20 MG TAB PO SCH ×3 (05:51→20:45)
[2016-05-24] MEDS: ALPRAZolam 1 MG TAB PO SCH ×3 (05:51→20:46)
[2016-05-24] MEDS: MORPHINE SULFATE 60 MG CONTROLLED RELEASE TAB PO SCH ×3 (05:51→20:45)
[2016-05-24] MEDS: SENNOSIDES SYRUP 8.8 MG/5 ML CUP G-TUBE SCH ×2 (05:52→15:40)
[2016-05-24] MEDS: PIPERACIL-TAZO 3.375 GM PREMIX 50 ML IV SCH ×4 (05:52→20:43)
[2016-05-24] MEDS: INSULIN NovoLIN REGULAR SUPPLEMENTAL SCALE SQ SCH ×4 (05:55→23:11)
[2016-05-24] MEDS: LACTULOSE SYRUP 20 GM/30 ML CUP PO SCH (07:08)
[2016-05-24] MEDS: POLYETHYLENE GLYCOL 17 GM PKG PO SCH (07:08)
[2016-05-24] MEDS: DOCUSATE SODIUM 100 MG/10 ML UDC G-TUBE SCH ×2 (07:08→20:45)
[2016-05-24] MEDS: BENEPROTEIN POWDER 1 PACK G-TUBE SCH ×3 (07:08→15:40)
[2016-05-24] MEDS: CHLORHEXIDINE 0.12% (ORAL KIT) 15 ML CUP MT SCH ×2 (07:09→20:00)
[2016-05-24] MEDS: RIFAXIMIN 550 MG TAB PO SCH ×2 (07:46→20:44)
[2016-05-24] MEDS: [UNRECOGNIZED DRUG - REMARK] PO SCH ×2 (07:47→20:44)
[2016-05-24] MEDS: ENOXAPARIN SODIUM 40 MG/0.4 ML SYRINGE SQ SCH (07:47)
[2016-05-24] MEDS: GABAPENTIN 400 MG CAP PO SCH ×3 (07:47→16:35)
[2016-05-24] MEDS: PANTOPRAZOLE SODIUM 40 MG VIAL IV SCH (07:47)
[2016-05-24] MEDS: SODIUM CHLORIDE 0.9% FLUSH 5 ML FLUSH IV FLUSH SCH ×2 (07:48→20:44)
[2016-05-24] MEDS: REMOVE OLD NICODERM (NICOTINE) PATCH TD SCH (07:48)
[2016-05-24] MEDS: NICOTINE 21 MG/24 HR PATCH TD SCH (07:49)
[2016-05-24] MEDS: ARTIFICIAL TEARS OPTH SOLN 15 ML BTL EACH EYE SCH ×3 (07:50→16:36)
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
[2016-05-25 04:00] VITALS: BP 132/80; PULSE 71; RESP 20; TEMP 96.8; O2SAT 92
[2016-05-25] MEDS: CHLORHEXIDINE GLUCONATE 2 % 1 PACK (2 CLOTHS) TOP SCH (04:00)
[2016-05-25] MEDS: PIPERACIL-TAZO 3.375 GM PREMIX 50 ML IV SCH ×4 (05:03→22:05)
[2016-05-25] MEDS: ALPRAZolam 1 MG TAB PO SCH ×3 (05:04→21:59)
[2016-05-25] MEDS: BACLOFEN 20 MG TAB PO SCH ×3 (05:04→21:59)
[2016-05-25] MEDS: MORPHINE SULFATE 60 MG CONTROLLED RELEASE TAB PO SCH ×3 (05:04→21:59)
[2016-05-25] MEDS: INSULIN NovoLIN REGULAR SUPPLEMENTAL SCALE SQ SCH ×3 (06:00→18:00)
[2016-05-25] MEDS: SENNOSIDES SYRUP 8.8 MG/5 ML CUP G-TUBE SCH ×2 (06:06→17:24)
[2016-05-25 08:00] VITALS: BP 120/73; PULSE 67; PULSE 74; RESP 20; TEMP 95.9; O2SAT 92
[2016-05-25] MEDS: CHLORHEXIDINE 0.12% (ORAL KIT) 15 ML CUP MT SCH ×2 (08:00→20:00)
[2016-05-25] MEDS: NICOTINE 21 MG/24 HR PATCH TD SCH (09:00)
[2016-05-25] MEDS: DOCUSATE SODIUM 100 MG/10 ML UDC G-TUBE SCH ×2 (09:00→21:00)
[2016-05-25] MEDS: REMOVE OLD NICODERM (NICOTINE) PATCH TD SCH (09:00)
[2016-05-25] MEDS: [UNRECOGNIZED DRUG - REMARK] PO SCH ×2 (09:00→21:00)
[2016-05-25] MEDS: LACTULOSE SYRUP 20 GM/30 ML CUP PO SCH (09:00)
[2016-05-25] MEDS: BENEPROTEIN POWDER 1 PACK G-TUBE SCH ×3 (09:00→17:23)
[2016-05-25] MEDS: oxyCODONE/ACETAMINOPHEN 10 MG/325 MG TAB PO PRN ×2 (09:12→19:02)
[2016-05-25] MEDS: RIFAXIMIN 550 MG TAB PO SCH ×2 (09:13→21:58)
[2016-05-25] MEDS: GABAPENTIN 400 MG CAP PO SCH ×3 (09:14→18:30)
[2016-05-25] MEDS: ENOXAPARIN SODIUM 40 MG/0.4 ML SYRINGE SQ SCH (09:14)
[2016-05-25] MEDS: POLYETHYLENE GLYCOL 17 GM PKG PO SCH (09:14)
[2016-05-25] MEDS: SODIUM CHLORIDE 0.9% FLUSH 5 ML FLUSH IV FLUSH SCH ×2 (09:15→21:58)
[2016-05-25] MEDS: ARTIFICIAL TEARS OPTH SOLN 15 ML BTL EACH EYE SCH ×3 (09:16→17:23)
[2016-05-25] MEDS: PANTOPRAZOLE SODIUM 40 MG VIAL IV SCH (09:20)
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
[2016-05-25] MEDS ORDERED: oxyCODONE/ACETAMINOPHEN 5 MG/325 MG TAB PO PRN (12:00)
[2016-05-25 16:00] VITALS: BP 111/66; PULSE 67; RESP 20; TEMP 96.6; O2SAT 90
[2016-05-25 16:30] VITALS: O2SAT 93
[2016-05-25 20:00] VITALS: BP 108/59; PULSE 68; PULSE 74; RESP 18; TEMP 96.4; O2SAT 94
[2016-05-26] VITALS (7 sets, daily range): BP systolic 96–110; BP diastolic 57–66; PULSE 67–93; RESP 18–20; TEMP 96.8–97.9; O2SAT 91–94
[2016-05-26] MEDS: oxyCODONE/ACETAMINOPHEN 10 MG/325 MG TAB PO PRN ×4 (01:03→23:32)
[2016-05-26] MEDS: CHLORHEXIDINE GLUCONATE 2 % 1 PACK (2 CLOTHS) TOP SCH (04:00)
[2016-05-26] MEDS: PIPERACIL-TAZO 3.375 GM PREMIX 50 ML IV SCH ×4 (04:00→22:00)
[2016-05-26] MEDS: INSULIN NovoLIN REGULAR SUPPLEMENTAL SCALE SQ SCH ×4 (06:00→18:00)
[2016-05-26] MEDS: MORPHINE SULFATE 60 MG CONTROLLED RELEASE TAB PO SCH ×3 (06:22→21:14)
[2016-05-26] MEDS: ALPRAZolam 1 MG TAB PO SCH ×3 (06:23→21:13)
[2016-05-26] MEDS: BACLOFEN 20 MG TAB PO SCH ×3 (06:23→21:13)
[2016-05-26] MEDS: SENNOSIDES SYRUP 8.8 MG/5 ML CUP G-TUBE SCH ×2 (07:00→19:00)
[2016-05-26] MEDS: CHLORHEXIDINE 0.12% (ORAL KIT) 15 ML CUP MT SCH ×2 (08:00→20:00)
[2016-05-26] MEDS: DOCUSATE SODIUM 100 MG/10 ML UDC G-TUBE SCH ×2 (09:00→21:00)
[2016-05-26] MEDS: REMOVE OLD NICODERM (NICOTINE) PATCH TD SCH (09:00)
[2016-05-26] MEDS: BENEPROTEIN POWDER 1 PACK G-TUBE SCH ×3 (09:00→17:23)
[2016-05-26] MEDS: [UNRECOGNIZED DRUG - REMARK] PO SCH ×2 (09:00→21:15)
[2016-05-26] MEDS: LACTULOSE SYRUP 20 GM/30 ML CUP PO SCH (09:00)
[2016-05-26] MEDS: ARTIFICIAL TEARS OPTH SOLN 15 ML BTL EACH EYE SCH ×3 (09:00→17:23)
[2016-05-26] MEDS: NICOTINE 21 MG/24 HR PATCH TD SCH (09:00)
[2016-05-26] MEDS: POLYETHYLENE GLYCOL 17 GM PKG PO SCH (09:00)
[2016-05-26] MEDS: PANTOPRAZOLE SODIUM 40 MG VIAL IV SCH (09:55)
[2016-05-26] MEDS: SODIUM CHLORIDE 0.9% FLUSH 5 ML FLUSH IV FLUSH SCH ×2 (09:57→21:13)
[2016-05-26] MEDS: ENOXAPARIN SODIUM 40 MG/0.4 ML SYRINGE SQ SCH (09:58)
[2016-05-26] MEDS: GABAPENTIN 400 MG CAP PO SCH ×3 (09:58→17:22)
[2016-05-26] MEDS: RIFAXIMIN 550 MG TAB PO SCH ×2 (09:58→21:13)
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
[2016-05-27] VITALS (7 sets, daily range): BP systolic 95–132; BP diastolic 54–97; PULSE 60–84; RESP 16–20; TEMP 96.5–97.5; O2SAT 92–94
[2016-05-27] MEDS: CHLORHEXIDINE GLUCONATE 2 % 1 PACK (2 CLOTHS) TOP SCH (04:00)
[2016-05-27] MEDS: PIPERACIL-TAZO 3.375 GM PREMIX 50 ML IV SCH ×2 (04:24→09:30)
[2016-05-27] MEDS: INSULIN NovoLIN REGULAR SUPPLEMENTAL SCALE SQ SCH ×4 (06:00→18:00)
[2016-05-27] MEDS: BACLOFEN 20 MG TAB PO SCH ×3 (06:48→21:48)
[2016-05-27] MEDS: ALPRAZolam 1 MG TAB PO SCH ×2 (06:48→15:18)
[2016-05-27] MEDS: MORPHINE SULFATE 60 MG CONTROLLED RELEASE TAB PO SCH ×3 (06:49→21:48)
[2016-05-27] MEDS: SENNOSIDES SYRUP 8.8 MG/5 ML CUP G-TUBE SCH ×2 (07:00→19:00)
[2016-05-27] MEDS: NICOTINE 21 MG/24 HR PATCH TD SCH (09:00)
[2016-05-27] MEDS: SODIUM CHLORIDE 0.9% FLUSH 5 ML FLUSH IV FLUSH SCH ×2 (09:00→21:49)
[2016-05-27] MEDS: POLYETHYLENE GLYCOL 17 GM PKG PO SCH (09:00)
[2016-05-27] MEDS: BENEPROTEIN POWDER 1 PACK G-TUBE SCH (09:00)
[2016-05-27] MEDS: DOCUSATE SODIUM 100 MG/10 ML UDC G-TUBE SCH ×2 (09:00→21:00)
[2016-05-27] MEDS: LACTULOSE SYRUP 20 GM/30 ML CUP PO SCH (09:00)
[2016-05-27] MEDS: RIFAXIMIN 550 MG TAB PO SCH ×2 (09:00→21:48)
[2016-05-27] MEDS: ENOXAPARIN SODIUM 40 MG/0.4 ML SYRINGE SQ SCH (09:28)
[2016-05-27] MEDS: GABAPENTIN 400 MG CAP PO SCH ×3 (09:29→18:00)
[2016-05-27] MEDS: [UNRECOGNIZED DRUG - REMARK] PO SCH ×2 (09:30→21:00)
[2016-05-27] MEDS: PANTOPRAZOLE SODIUM 40 MG VIAL IV SCH (09:32)
--- NOTE | 2016-05-27 14:17 | HHI.PR ---
Addendum to Inpatient Note Additional Information Abx duration reviewed: cefepime+ vanco mycin : 05/13 thru 05/20 zosyn 05/20 thru today therefore abx ccan be completed today Maddie Saunders MD May 27, 2016 14:17
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
[2016-05-27] MEDS ORDERED: AMLO10 PO (16:25)
[2016-05-27] MEDS ORDERED: PROT6POW G-TUBE (16:25)
[2016-05-27] MEDS ORDERED: DOCU100S G-TUBE (16:25)
[2016-05-27] MEDS ORDERED: MORP1TAB26 PO (16:25)
[2016-05-27] MEDS ORDERED: XANA1TAB2 PO (16:25)
[2016-05-27] MEDS ORDERED: POLY17S PO (16:25)
[2016-05-27] MEDS ORDERED: XIFA550T4 PO (16:25)
[2016-05-27] MEDS ORDERED: OXYC1TAB63 PO (16:25)
[2016-05-27] MEDS ORDERED: BACL20TA PO (16:25)
[2016-05-27] MEDS: CHLORHEXIDINE 0.12% (ORAL KIT) 15 ML CUP MT SCH (20:00)
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
[2016-05-27] MEDS ORDERED: ALPRAZolam 0.5 MG TAB PO SCH (22:00)
[2016-05-28] VITALS: BP 109/59; PULSE 74; RESP 18; TEMP 96.3; O2SAT 93
[2016-05-28] MEDS: oxyCODONE/ACETAMINOPHEN 10 MG/325 MG TAB PO PRN ×2 (00:37→07:51)
[2016-05-28] MEDS: INSULIN NovoLIN REGULAR SUPPLEMENTAL SCALE SQ SCH ×3 (06:00→11:39)
[2016-05-28 06:04] VITALS: BP 107/63; PULSE 69; RESP 18; TEMP 97.2; O2SAT 93
[2016-05-28] MEDS: BACLOFEN 20 MG TAB PO SCH (06:40)
[2016-05-28] MEDS: MORPHINE SULFATE 60 MG CONTROLLED RELEASE TAB PO SCH (06:40)
[2016-05-28] MEDS: SENNOSIDES SYRUP 8.8 MG/5 ML CUP G-TUBE SCH (06:43)
[2016-05-28] MEDS: CHLORHEXIDINE 0.12% (ORAL KIT) 15 ML CUP MT SCH (07:30)
[2016-05-28] MEDS: LACTULOSE SYRUP 20 GM/30 ML CUP PO SCH (07:31)
[2016-05-28] MEDS: DOCUSATE SODIUM 100 MG/10 ML UDC G-TUBE SCH (07:31)
[2016-05-28] MEDS: POLYETHYLENE GLYCOL 17 GM PKG PO SCH (07:31)
[2016-05-28] MEDS: ENOXAPARIN SODIUM 40 MG/0.4 ML SYRINGE SQ SCH (07:50)
[2016-05-28] MEDS: RIFAXIMIN 550 MG TAB PO SCH (07:51)
[2016-05-28] MEDS: GABAPENTIN 400 MG CAP PO SCH (07:51)
[2016-05-28] MEDS: [UNRECOGNIZED DRUG - REMARK] PO SCH (07:52)
[2016-05-28] MEDS: NICOTINE 21 MG/24 HR PATCH TD SCH (07:52)
[2016-05-28] MEDS: ARTIFICIAL TEARS OPTH SOLN 15 ML BTL EACH EYE SCH (07:53)
[2016-05-28] MEDS: SODIUM CHLORIDE 0.9% FLUSH 5 ML FLUSH IV FLUSH SCH (07:53)
[2016-05-28] MEDS: REMOVE OLD NICODERM (NICOTINE) PATCH TD SCH (07:53)
[2016-05-28] MEDS: BENEPROTEIN POWDER 1 PACK G-TUBE SCH (07:54)
[2016-05-28 08:00] VITALS: BP 117/77; PULSE 73; RESP 18; TEMP 96.9; O2SAT 94
== END 2016-05-28 12:25 | disposition home or self-care (01) | DRG 917 ==
LOC: NEPC 20:14 → NEDA 22:52 → N03A 05-14 03:46 → N05B 05-18 14:12
PROVIDERS: ADMIT Internal Medicine Critical Care Medicine; ATTEND Hospitalist
PROC: 0BH17EZ Insertion of Endotracheal Airway into Trachea, Via Natural or Artificial Opening (ICD-10-PCS; principal; 2016-05-13)
PROC: 5A1945Z Respiratory Ventilation, 24-96 Consecutive Hours (ICD-10-PCS; 2016-05-13)
DX: T40.2X1A Poisoning by other opioids, accidental (unintentional), initial encounter (principal); J96.01 Acute respiratory failure with hypoxia; J69.0 Pneumonitis due to inhalation of food and vomit; G92 Toxic encephalopathy; G82.50 Quadriplegia, unspecified; R78.81 Bacteremia; E87.0 Hyperosmolality and hypernatremia; E87.2 Acidosis; F11.20 Opioid dependence, uncomplicated; I50.32 Chronic diastolic (congestive) heart failure; E44.1 Mild protein-calorie malnutrition; N39.0 Urinary tract infection, site not specified; B37.49 Other urogenital candidiasis; D69.6 Thrombocytopenia, unspecified; N31.9 Neuromuscular dysfunction of bladder, unspecified; N20.0 Calculus of kidney; F32.9 Major depressive disorder, single episode, unspecified; F41.9 Anxiety disorder, unspecified; B95.2 Enterococcus as the cause of diseases classified elsewhere; B96.5 Pseudomonas (aeruginosa) (mallei) (pseudomallei) as the cause of diseases classified elsewhere; B96.4 Proteus (mirabilis) (morganii) as the cause of diseases classified elsewhere; E87.6 Hypokalemia; F17.210 Nicotine dependence, cigarettes, uncomplicated; G40.909 Epilepsy, unspecified, not intractable, without status epilepticus; B95.7 Other staphylococcus as the cause of diseases classified elsewhere; G47.30 Sleep apnea, unspecified; I10 Essential (primary) hypertension; S14.109S Unspecified injury at unspecified level of cervical spinal cord, sequela; Z86.14 Personal history of Methicillin resistant Staphylococcus aureus infection; Z89.611 Acquired absence of right leg above knee
CPT/HCPCS: 31500; 36600; 70450; 71010; 74000; 74177; 76937; 80048; 80053; 80202; 80301; 80320; 81001; 82140; 82550; 82805; 82948; 83605; 83735; 84100; 84484; 85025; 85027; 85610; 85730; 86403; 87040; 87077; 87086; 87186; 87205; 87641; 87804; 93005; 93306; 94002; 94003; 94640; 96365; 96375; C9113; G0479; J0330; J0456; J0692; J1650; J2543; J2765; J3010; J3370; J7030; J7040; J7050; Q9967

== ENCOUNTER 2017-01-23 22:10 | Emergency (ER) | payer MEDICARE, OTHER ==
[~2017-01-23] VITALS: Ht 177.8 cm; Wt 88.6 kg
[~2017-01-23 22:10] MED LIST changes: -ALPR2TAB3 PO; +AMLO10 PO; -CIPR500T4 PO; +DOCU100S G-TUBE; -GABA800T PO; -IBUP800T23 PO; -MELA5TAB13 PO; -METH1TAB2 PO; -MORP100T40 PO; +MORP1TAB26 PO; -MORP60TA20; +NEUR800T PO; +OXYC1TAB63 PO; -PERC10TA27 PO; +POLY17S PO; -POTA1TAB4; +PROT6POW G-TUBE; +XANA1TAB2 PO; +XIFA550T4 PO; -[UNRECOGNIZED DRUG - CODE] IR
[2017-01-23 22:17] VITALS: BP 122/88; PULSE 64; RESP 20; TEMP 97.9; O2SAT 93
[2017-01-23] MEDS ORDERED: SODIUM CHLORIDE 0.9% FLUSH 10 ML FLUSH IV FLUSH PRN (22:30)
[2017-01-23] MEDS ORDERED: MORP1TAB27 PO (22:40)
[2017-01-23] MEDS ORDERED: XANA2TAB2 PO (22:40)
[2017-01-23 22:56] LABS: AUTOMATED NEUTROPHIL # 6.1 TH/MM3 (1.8-7.7); BASOPHIL # 0.5 TH/MM3 (0-0.2); BASOPHIL % 4.7 % (0.0-2.0); EOSINOPHIL # 0.5 TH/MM3 (0-0.4); EOSINOPHIL % 5.1 % (0.0-4.0); HEMATOCRIT 50.7 % (39.0-51.0); HEMO FLAGS DIFF FINAL; LYMPH % 20.7 % (9.0-44.0); MEAN CELL VOLUME 83.2 FL (80.0-100.0); MEAN CORPUSCULAR HEMOGLOBIN 27.7 PG (27.0-34.0); MEAN CORPUSCULAR HGB CONC 33.3 % (32.0-36.0); MONO % 6.8 % (0.0-8.0); NEUT % 62.7 % (16.0-70.0); PLATELET COUNT 235 TH/MM3 (150-450); RED BLOOD COUNT 6.09 MIL/MM3 (4.50-5.90); RED CELL DISTRIBUTION WIDTH 13.8 % (11.6-17.2); WHITE BLOOD COUNT 9.8 TH/MM3 (4.0-11.0)
[2017-01-23 22:57] LABS: BLOOD, URINE MOD (NEG); GLUCOSE,URINE NEG (NEG); KETONE, URINE NEG (NEG); NITRITE,URINE POS (NEG); PH, URINE 7.5 (5.0-8.5)
[2017-01-23 23:01] LABS: POTASSIUM 4.3 MEQ/L (3.5-5.1)
[2017-01-23 23:04] LABS: BICARBONATE 34.3 MEQ/L (21.0-32.0)
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
[2017-01-23 23:11] LABS: BACTERIA, URINE MOD /hpf; COMMENT (UR) CATH-CULTURE IND; CULTURE IF INDICATED CATH CULTURE IND; MUCUS URINE FEW /lpf (OCC); SQUAMOUS EPITHELIAL CELL URINE 0-5 /hpf (0-5); URINE COLOR YELLOW (YELLW/STRAW); WBC, URINE INNUM /hpf (0-5)
[2017-01-23] MEDS ORDERED: cefTRIAXone INJ 1,000 MG in SODIUM CHLORIDE 0.9% INJ 100 ML IV ONE (23:30)
[2017-01-23] MEDS ORDERED: BACT800T5 PO (23:32)
[2017-01-24 02:03] VITALS: BP 118/73
== END 2017-01-24 02:03 | disposition home or self-care (01) ==
LOC: PHED 22:10
DX: N39.0 Urinary tract infection, site not specified (principal); R31.9 Hematuria, unspecified; G82.20 Paraplegia, unspecified; B96.5 Pseudomonas (aeruginosa) (mallei) (pseudomallei) as the cause of diseases classified elsewhere
CPT/HCPCS: 80048; 81001; 85025; 87077; 87086; 87186; 96365; 99284; J0696

== ENCOUNTER 2017-01-24 13:13 | Emergency (ER) | payer MEDICARE, OTHER ==
[~2017-01-24] VITALS: Ht 121.9 cm; Wt 90.0 kg
[~2017-01-24 13:13] MED LIST changes: -AMLO10 PO; +BACT800T5 PO; -DOCU100S G-TUBE; -MORP1TAB26 PO; +MORP1TAB27 PO; -POLY17S PO; -PROT6POW G-TUBE; -XANA1TAB2 PO; +XANA2TAB2 PO; -XIFA550T4 PO
[2017-01-24 13:25] VITALS: BP 123/78; PULSE 74; RESP 18; TEMP 98; O2SAT 94
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
== END 2017-01-24 14:23 | disposition home or self-care (01) ==
LOC: NEPE 13:13
DX: Z03.89 Encounter for observation for other suspected diseases and conditions ruled out (principal); F17.210 Nicotine dependence, cigarettes, uncomplicated
CPT/HCPCS: 99281